=== PATIENT | female | born 1950 | race Caucasian/White ===

== ENCOUNTER → 2016-11-16 | Outpatient (CLI) | payer BC ==
[~2016-11-16] MED LIST: AGM875; CHOL100010 PO; CLR10; DIAZ2TAB PO; FAMO20TA11; GLUC10007 PO; LEVO50TA6 PO; LVNIS120 SQ; MULT-190 PO; WARF4TAB43 PO; WARF5TAB7 PO; WARF7.5T4 PO
--- NOTE | 2016-11-16 17:00 | MAMMOGRAPHY REPORT ---
BILATERAL DIGITAL SCREENING MAMMOGRAM WITH CAD: 11/16/2016 TECHNIQUE: Current study was also evaluated with a Computer Aided Detection (CAD) system. Bilatera l CC and MLO views were obtained. COMPARISON: Comparison is made to exams dated: 07/07/2015 mammogram, 08/14/2012 mammogram, 10/19/2010 mammogram, 10/13/2009 mammogram - [facility] [address], and 10/09/2008. BREAST COMPOSITION: There are scattered areas of fibroglandular density in both breasts. FINDINGS: There is a small cluster of calcifications in the right upper outer quadrant, for which s pot magnification views are recommended for further evaluation. The remainder of both breasts are stable compared to prior exams, without suspicious masses, calcifi cations, or areas of architectural distortion noted. Other scattered bilateral benign-appearing roseline cifications are stable. Round mass in the left upper outer quadrant is stable dating back to at [address] the 2007 exam. IMPRESSION: ACR BI-RADS CATEGORY 0: INCOMPLETE EVALUATION: NEED ADDITIONAL IMAGING EVALUATION Right upper outer quadrant calcifications, for which additional imaging evaluation is recommended. The patient will be called to schedule an appointment. Approximately 10% of breast cancers are not detected with mammography. A negative mammographic repor t should not delay biopsy if a clinically suggestive mass is present. Haley New M.D. /:11/16/2016 16:12:22 Implementation Lead: Margie GARCIA)(Jonathan), [facility] [address] letter sent: Addl Imaging 0 BI-RADS Code: ACR BI-RADS Category 0: Incomplete Evaluation: Need Additional Imaging Evaluation
== END | disposition home or self-care (01) ==
LOC: C.MAMM 11:22
PROVIDERS: ATTEND Family Medicine
DX: Z12.31 Encounter for screening mammogram for malignant neoplasm of breast (principal); R92.1 Mammographic calcification found on diagnostic imaging of breast

== ENCOUNTER → 2016-11-29 | Outpatient (CLI) | payer BC ==
--- NOTE | 2016-11-29 13:25 | MAMMOGRAPHY REPORT ---
UNILATERAL RIGHT DIGITAL DIAGNOSTIC MAMMOGRAM: 11/29/2016 CLINICAL HISTORY: 66-year-old woman called back from screening mammography for clustered microcalcif ications in the right upper outer quadrant. TECHNIQUE: Spot magnification right CC and ML views were obtained. COMPARISON: Comparison is made to exams dated: 11/16/2016 mammogram, 07/07/2015 mammogram, and 08/14/20 12 mammogram - [facility]. BREAST COMPOSITION: There are scattered areas of fibroglandular density in the right breast. FINDINGS: The spot magnification views of the right upper outer quadrant demonstrate a 6 mm cluster of very faint amorphous microcalcifications in the middle one third of the upper outer quadrant. Wh en comparing to prior available mammograms, a few may have been present dating back to 2011, but the cluster remains indeterminate and definitive characterization with tissue sampling is recommended. No obvious associated mass or architectural distortion. A few other loosely grouped punctate micro calcifications are seen more medially within the visualized right breast. IMPRESSION: ACR BI-RADS CATEGORY 4B: INTERMEDIATE SUSPICION FOR MALIGNANCY Right breast stereotactic guided biopsy is recommended for a 6 mm cluster of faint amorphous microca lcifications in the right upper outer quadrant. These results and recommendations were discussed with the patient at the time of the exam. She tent atively scheduled the biopsy prior to leaving our department. Approximately 10% of breast cancers are not detected with mammography. A negative mammographic repor t should not delay biopsy if a clinically suggestive mass is present. Flora Ontiveros M.D. ay/:11/29/2016 12:22:10 Airframe Design Engineer: Sonia MCCARTY(Daly)(M), [facility] letter sent: Abnormal 4/5 BI-RADS Code: ACR BI-RADS Category 4B: Intermediate Suspicion For Malignancy
== END | disposition home or self-care (01) ==
LOC: C.MAMM 10:32
PROVIDERS: ATTEND Family Medicine
DX: R92.0 Mammographic microcalcification found on diagnostic imaging of breast (principal)

== ENCOUNTER → 2016-12-07 | Outpatient (CLI) | payer BC ==
--- NOTE | 2016-12-07 14:51 | Discharge Instructions ---
Discharge Instructions Procedure Procedure Date: Dec 07, 2016. Reason for visit: Right Calcs. Discharge Discharge Date: Dec 07, 2016. Discharge Diagnosis: status post breast biopsy Instructions Activity Recommendations: Additional Limitations (see below) Return to School/Work: no limitations Recommended Home Diet: No Limitations Provider Instructions: ACTIVITY RECOMMENDATIONS: * No lifting, pushing, pulling or exercising the affected side for three days. RETURN TO SCHOOL/WORK: * You may return to work/school after the procedure, but do not perform any strenuous activities for 24 to 48 hours. MEDICATIONS: * Tylenol (two 325 mg) every four to six hours if needed for mild pain (if not allergic to Tylenol). DIET: * Resume previous diet. SPECIAL CARE INSTRUCTIONS: * Keep biopsy site dry for 24 hours. May shower after 24 hours, but do not soak (bathe) incision. * May remove Tegaderm (plastic patch) tomorrow AFTER showering. * Leave the steri-strips on for one week. Allow the steri-strips to fall off by themselves. If not off after one week, you may remove them. You may place a Bandaid crosswise over the strips, if desired. * Apply ice 10 minutes on and 10 minutes off as needed. * Wear a bra at bedtime to sleep more comfortably for 2-3 days. * Your referring physician should have the results after approximately 5 to 7 business days. * Call for unusual bleeding, fever, drainage, etc or if you have any questions call during normal business hours or after hours call Dr New, . FOLLOW UP VISIT: Follow-up with Referring Physician as scheduled. Allergies Coded Allergies: No Known Allergies (Unverified Allergy, Mild, 05/01/06) Tayler Saba Recommendations: Call your doctor if: * Temperature above 101 degrees * Pain not relieved by pain medicine ordered * There is increased drainage or redness from any incision * You have any unanswered questions or concerns. Your Doctors Instructions noted above were prepared by provider Haley New. Patient Signature Section: Patient Instructions Signature Page Teresa Martinezra Patient (or Guardian) Signature/Date: I have read and understand the instructions given to me by my caregivers. Caregiver/RN/Doctor Signature/Date: The above-named patient and/or guardian has received patient instructions on this date. + Original Patient Signature Page (only) stays with chart. Please make copy for patient.
--- NOTE | 2016-12-07 16:13 | MAMMOGRAPHY REPORT ---
STEREOTACTIC GUIDED BIOPSY RIGHT BREAST: 12/07/2016 CLINICAL HISTORY: Right upper outer quadrant calcifications. PATIENT CONSENT: The procedure, risks, benefits, and alternatives of stereotactic biopsy with clip p lacement were discussed with the patient, and verbal and written consent was obtained. A timeout wa s performed immediately prior to the procedure. PROCEDURE DESCRIPTION: With stereotactic guidance, aseptic technique, and lidocaine as a local anest hetic (1% lidocaine to anesthetize the skin and 1% lidocaine with epinephrine to anesthetize the naz per tissues), the area of concern was sampled multiple times with a 9-gauge vacuum-assisted biopsy n eedle (TipTap Eviva). The path of approach was craniocaudal. The specimen radiograph demonstrates c alcifications to be present in the samples. A metallic marker clip was placed at the biopsy site. This was confirmed on postprocedure mammograms. Direct pressure was applied at the biopsy site and hemostasis was readily achieved. The patient tolerated the procedure without complication. She was given wound care instructions. COMPARISON: Comparison is made to exams dated: 11/29/2016 mammogram, 11/16/2016 mammogram, 07/07/2015 m ammogram, 08/14/2012 mammogram, 10/19/2010 mammogram, and 10/13/2009 mammogram - [facility]. IMPRESSION: STEREOTACTIC GUIDED BIOPSY Stereotactic biopsy of indeterminate calcifications in the right upper outer quadrant, with clip adarsh cement. The patient will receive pathology results from her referring physician. Haley New M.D. ah/:12/07/2016 14:52:31 Sewing Supervisor: Lissett MCCARTY(Daly)(Jonathan), [facility]
--- NOTE | 2016-12-07 16:14 | MAMMOGRAPHY REPORT ---
UNILATERAL RIGHT DIGITAL DIAGNOSTIC MAMMOGRAM: 12/07/2016 CLINICAL HISTORY: Status post stereotactic biopsy of right breast calcifications. TECHNIQUE: Postprocedural right CC and MLO views were obtained. COMPARISON: Comparison is made to exams dated: 11/29/2016 mammogram, 11/16/2016 mammogram, 07/07/2015 m ammogram, 08/14/2012 mammogram, 10/19/2010 mammogram, and 10/13/2009 mammogram - [facility]. BREAST COMPOSITION: There are scattered areas of fibroglandular density in the right breast. FINDINGS: A new marker clip is seen at the site of the biopsied calcifications in the right upper outer quadra nt. No significant postbiopsy hematoma is seen. IMPRESSION: POST PROCEDURE IMAGING FOR MARKER PLACEMENT New biopsy marker clip status post stereotactic biopsy of right upper-outer quadrant calcifications. Pathology results are pending. Approximately 10% of breast cancers are not detected with mammography. A negative mammographic repor t should not delay biopsy if a clinically suggestive mass is present. Haley New M.D. ah/:12/07/2016 15:02:02 Crown Ironer Operator: Lissett GARCIA)(Jonathan), [facility] BI-RADS Code: Post Procedure Imaging For Marker Placement
== END | disposition home or self-care (01) ==
LOC: C.MAMM 13:29
PROVIDERS: ATTEND Family Medicine
DX: R92.1 Mammographic calcification found on diagnostic imaging of breast (principal); N60.11 Diffuse cystic mastopathy of right breast; N60.81 Other benign mammary dysplasias of right breast

== ENCOUNTER → 2016-12-19 | Outpatient (CLI) | payer BC ==
--- NOTE | 2016-12-19 11:57 | DIAGNOSTIC IMAGING REPORT ---
CHEST 2 VIEWS ROUTINE CLINICAL HISTORY: Shortness of breath. Cough. COMPARISON STUDY: Chest radiograph August 27, 2007. FINDINGS: There is no pneumothorax or pleural effusion. Lung volumes are normal. Linear left basilar opacity suggests atelectasis. There is no consolidation. Opacity at the right cardiophrenic angle is unchanged and may reflect epicardial fat pad. Cardiomediastinal silhouette is stable. There is no evidence of pulmonary edema. The appearance of the chest has not significantly changed. IMPRESSION: No acute cardiopulmonary findings. No significant change in appearance of the chest. Electronically signed by: Dale Ocampo M.D. 12/19/2016 11:56 AM Dictated Date/Time: 12/19/2016 11:54 AM
== END | disposition home or self-care (01) ==
LOC: C.RAD 10:45
PROVIDERS: ATTEND Family Medicine
DX: R06.02 Shortness of breath (principal); F41.9 Anxiety disorder, unspecified; N60.19 Diffuse cystic mastopathy of unspecified breast

== ENCOUNTER 2017-02-20 13:56 | Inpatient (IN) | payer BC, OTHER ==
[~2017-02-20] VITALS: Ht 162.6 cm; Wt 116.1 kg
[~2017-02-20 13:56] MED LIST changes: -CHOL100010 PO; -DIAZ2TAB PO; -GLUC10007 PO; -LEVO50TA6 PO; -LVNIS120 SQ; -MULT-190 PO; -WARF4TAB43 PO; -WARF5TAB7 PO; -WARF7.5T4 PO
[2017-02-20] MEDS ORDERED: LEVALBUTEROL 1.25MG/0.5ML NEB INH STA (14:08)
[2017-02-20] MEDS ORDERED: METHYLPREDNISOLONE 125 MG VIAL IV STA (14:08)
[2017-02-20] MEDS ORDERED: IPRATROPIUM BROMIDE NEB SOLN 0.02% 2.5 ML VIAL INH STA (14:08)
[2017-02-20] MEDS ORDERED: SODIUM CHLORIDE 0.9% 1000ML 1,000 ML IV STA (14:08)
--- NOTE | 2017-02-20 14:25 | EMERGENCY ROOM VISIT NOTE ---
History Report prepared by Ab: Jaswinder Mooney Under the Supervision of: Dr. Oneal Resendez M.D. First contact with patient: 14:04 Chief Complaint: RESPIRATORY PROBLEMS Stated Complaint: CANNOT BREATH W/O O2.. DR REFERRED History of Present Illness The patient is a 66 year old female who presents to the Emergency Room with complaints of persistent shortness of breath for the past four days. The shortness of breath is exacerbated with exertion. She has felt hot but did not measure her temperature. She was wearing oxygen upon arrival, which has made it much easier to breathe. She also tried using her daughter's nebulizer, which did also help. The patient was referred to the ED today by Dr. Giron's office ( [facility]), where she was noted to have a low oxygen saturation (mid 80 's). The patient denies any history of lung disease, including COPD or asthma. She also denies history of diabetes, cardiac disease, or blood clots. She has not been on any long trips recently. She had the flu shot this year. The patient does not have any sick contacts. Source of History: patient Onset: four days ago Position: other (respiratory) Quality: other (short of breath) Timing: other (persistent) Modifying Factors (Worsening): exertion Review of Systems See HPI for pertinent positives & negatives. A total of 10 systems reviewed and were otherwise negative. Past Medical & Surgical Medical Problems: (1) Licona's palsy Family History FH: asthma Social History Smoking Status: Former Smoker Marital Status: Housing Status: lives with family Current/Historical Medications Scheduled Cholecalciferol (Vitamin D), 1,000 PO DAILY Glucosamine Sulfate (Glucosamine), 2,000 MG PO DAILY Levothyroxine Sodium (Levothyroxine Sodium), 1 TAB PO DAILY Ocuvite Preservision (Ocuvite Preservision), 1 TAB PO DAILY Miscellaneous Medications Loratadine (Claritin) Allergies Coded Allergies: Erythromycin (Unverified Adverse Reaction, Intermediate, STOMACH UPSET, ) Physical Exam Vital Signs Date Time Temp Pulse Resp B/P Pulse Ox O2 Delivery O2 Flow Rate FiO2 02/20/17 17:00 100 24 123/84 96 Non-Rebreather 15.0 100 02/20/17 16:46 96 Non-Rebreather 15.0 100 02/20/17 16:45 87 Nasal Cannula 6.0 02/20/17 16:05 88 24 141/75 94 Nasal Cannula 5.0 02/20/17 15:43 101 20 147/105 97 Nasal Cannula 5.0 02/20/17 14:50 101 02/20/17 14:37 Nasal Cannula 4.0 89 02/20/17 14:15 95 Nasal Cannula 5.0 02/20/17 14:15 95 5.0 02/20/17 14:05 Nasal Cannula 4.0 02/20/17 13:57 36.8 112 18 178/104 83 Room Air Physical Exam GENERAL: Patient is in no acute distress. HEENT: No acute trauma, normocephalic atraumatic, mucous membranes moist, no nasal congestion, no scleral icterus. NECK: No stridor, no adenopathy, no meningismus, trachea is midline. LUNGS: Clear to auscultation bilaterally, no wheeze, no rhonchi, breath sounds equal. HEART: Tachycardic with a regular rhythm and no murmurs. ABDOMEN: Soft, nontender, bowel sounds positive, no hernias, no peritonitis. EXTREMITIES: No cyanosis or edema, full range of motion of all the joints without pain or difficulty, no signs for acute trauma. NEUROLOGIC: Oriented x 3, no acute motor or sensory deficits, no focal weakness. SKIN: No rash, no jaundice, no diaphoresis. Medical Decision & Procedures ER Provider Diagnostic Interpretation: X ray results and stated below per my interpretation and radiologist interpretation. Other radiology results and stated below per my review and radiologist interpretation: CHEST ONE VIEW PORTABLE CLINICAL HISTORY: EVALUATE RESPIRATORY DISTRESS. DYSPNEA dyspnea COMPARISON STUDY: 12/19/2016 FINDINGS: Mild stable cardia megaly. Pulmonary vasculature is unremarkable. Diaphragms smooth. IMPRESSION: No acute process. Electronically signed by: Nico Julien M.D. 02/20/2017 2:40 PM Dictated Date/Time: 02/20/2017 2:[address] ANGIOGRAM OF THE CHEST CLINICAL HISTORY: Shortness of breath COMPARISON STUDY: Chest x-ray dated 02/20/2017 TECHNIQUE: Following the IV administration of 90 mL of Optiray-320, CT angiogram of the thorax was performed from the thoracic inlet to the lung bases utilizing the pulmonary embolus protocol. Images are reviewed in the axial, sagittal, and coronal planes. IV contrast was administered without complication. MIP imaging was performed. CT DOSE: 656.03 mGy.cm FINDINGS: There is a small hiatal hernia. No pathologically enlarged axillary mediastinal or hilar lymph nodes were visualized. There was no evidence of thoracic aortic dilatation. There are pulmonary artery filling defects involving bilateral lower lobe pulmonary artery branches, bilateral upper lobe branches, as well as right middle lobe branches. The findings are indicative of acute bilateral pulmonary embolism. There are no secondary findings to indicate right ventricular strain. No pleural effusions are visualized. There are nodular airspace opacities within the left upper lobe and right lower lobe. In addition there are scattered groundglass opacities. These are likely inflammatory or secondary to pulmonary infarcts. IMPRESSION: 1. Acute bilateral pulmonary embolism 2. Scattered bilateral airspace opacities, likely inflammatory or secondary to pulmonary infarction. Electronically signed by: Shaun Monroe M.D. 02/20/2017 4:33 PM Dictated Date/Time: 02/20/2017 4:29 PM Laboratory Results 02/20/17 14:25 Red Blood Count 5.41, Mean Corpuscular Volume 87.2, Mean Corpuscular Hemoglobin 30.7, Mean Corpuscular Hemoglobin Concent 35.2, Mean Platelet Volume 11.0, Neutrophils (%) (Auto) 78.9, Lymphocytes (%) (Auto) 12.0, Monocytes (%) (Auto) 6.9, Eosinophils (%) (Auto) 1.7, Basophils (%) (Auto) 0.2, Neutrophils # (Auto) 9.02, Lymphocytes # (Auto) 1.37, Monocytes # (Auto) 0.79, Eosinophils # (Auto) 0.19, Basophils # (Auto) 0.02 02/20/17 14:25 Test 02/20/17 14:25 02/20/17 14:30 White Blood Count 11.43 K/uL (4.8-10.8) Red Blood Count 5.41 M/uL (4.2-5.4) Hemoglobin 16.6 g/dL (12.0-16.0) Hematocrit 47.2 % (37-47) Mean Corpuscular Volume 87.2 fL (80-100) Mean Corpuscular Hemoglobin 30.7 pg (25-34) Mean Corpuscular Hemoglobin Concent 35.2 g/dl (32-36) Platelet Count 208 K/uL (130-400) Mean Platelet Volume 11.0 fL (7.4-10.4) Neutrophils (%) (Auto) 78.9 % Lymphocytes (%) (Auto) 12.0 % Monocytes (%) (Auto) 6.9 % Eosinophils (%) (Auto) 1.7 % Basophils (%) (Auto) 0.2 % Neutrophils # (Auto) 9.02 K/uL (1.4-6.5) Lymphocytes # (Auto) 1.37 K/uL (1.2-3.4) Monocytes # (Auto) 0.79 K/uL (0.11-0.59) Eosinophils # (Auto) 0.19 K/uL (0-0.5) Basophils # (Auto) 0.02 K/uL (0-0.2) RDW Standard Deviation 40.9 fL (36.4-46.3) RDW Coefficient of Variation 12.9 % (11.5-14.5) Immature Granulocyte % (Auto) 0.3 % Immature Granulocyte # (Auto) 0.04 K/uL (0.00-0.02) Prothrombin Time 10.6 SECONDS (9.0-12.0) Prothromb Time International Ratio 1.0 (0.9-1.1) Activated Partial Thromboplast Time 26.7 SECONDS (21.0-31.0) Partial Thromboplastin Ratio 1.0 Anion Gap 7.0 mmol/L (3-11) Est Creatinine Clear Calc Drug Dose 74.7 ml/min Estimated GFR () 75.1 Estimated GFR (Non- 64.8 BUN/Creatinine Ratio 12.2 (10-20) Calcium Level 8.8 mg/dl (8.5-10.1) Total Bilirubin 0.6 mg/dl (0.2-1) Aspartate Amino Transf (AST/SGOT) 16 U/L (15-37) Alanine Aminotransferase (ALT/SGPT) 24 U/L (12-78) Alkaline Phosphatase 86 U/L (45-117) Troponin I 0.100 ng/ml (0-0.045) Total Protein 8.1 gm/dl (6.4-8.2) Albumin 3.7 gm/dl (3.4-5.0) Globulin 4.4 gm/dl (2.5-4.0) Albumin/Globulin Ratio 0.8 (0.9-2) Influenza Type A (RT-PCR) Neg for Influ A (NEG) Influenza Type B (RT-PCR) Neg for Influ B (NEG) Laboratory results reviewed by me. Medications Administered Medications (Trade) Dose Ordered Sig/Nilda Route Start Time Stop Time Status Last Admin Dose Admin Sodium Chloride (Nss 1000ml) 1,000 ml @ 200 mls/hr Q5H STAT IV 02/20/17 14:08 02/20/17 19:07 02/20/17 14:33 200 MLS/HR Methylprednisolone Sodium Succinate (Solu-Medrol IV) 80 mg NOW STAT IV 02/20/17 14:08 02/20/17 14:12 DC 02/20/17 14:33 80 MG Levalbuterol (Xopenex 1.25MG/ 0.5ML Neb) 1.25 mg NOW STAT INH 02/20/17 14:08 02/20/17 14:12 DC 02/20/17 14:27 1.25 MG Ipratropium Jupiter (Atrovent 0.02% 0.5MG/2.5ML Neb) 0.5 mg NOW STAT INH 02/20/17 14:08 02/20/17 14:12 DC 02/20/17 14:27 0.5 MG Enoxaparin Sodium (Lovenox Inj) 120 mg ONE ONCE SQ 02/20/17 17:00 02/20/17 17:01 DC 02/20/17 17:06 120 MG ECG Indication: SOB/dyspnea Rate (beats per minute): 102 Rhythm: sinus tachycardia Findings: no acute ischemic change, no ectopy ED Course 1404: The patient was evaluated in room C6. A complete history and physical exam was performed. 1408: Ipratropium Jupiter 0.5 mg INH, Levalbuterol 1.25 mg INH, Solu-Medrol 80 mg IV, NSS 1000 ml @ 200 mls/hr. 1640: Discussed the case with Dr. Arita, [facility] Hospitalist. The patient will be evaluated. 1642: Lovenox 1 ea SQ. 1643: Updated the patient. 1700: Lovenox 120 mg SQ. Medical Decision Differential diagnosis includes pneumonia or bronchitis, CHF, COPD or asthma, electrolyte imbalance, anemia, GA, PE. There is a mild leukocytosis, this could be consistent with infection or the stress of her situation. No worrisome anemia. No significant electrolyte abnormality, kidney failure or hepatitis. There was no coagulopathy. EKG showed a sinus tachycardia, no acute ischemic change. Cardiac enzyme testing 1 was elevated consistent with possible cardiac injury/strain. Chest x-ray did not show pneumonia or pneumothorax. Chest CT showed bilateral pulmonary emboli , no pneumonia. No right heart strain by CT. Influenza testing was negative. The patient did require O2 supplementation to keep her oxygen level adequate. She was hypoxic on just room air. She received IV saline, IV Solu-Medrol and a Xopenex Atrovent neb. She was given subcutaneous Lovenox as anticoagulation. The patient requires admission/observation based on her findings. I talked with her. I spoke with the supervisor case loading. The on-call hospitalist was consulted. The decision to give Lovenox versus IV heparin was based on the preference of the hospitalist. Consults Time Called: 1630 Consulting Physician: Dr. Arita [facility] Hospitalist. Returned Call: [phone]: Discussed the case with Dr. Arita, [facility]ist. The patient will be evaluated. Impression Primary Impression: Bilateral pulmonary embolism Additional Impressions: Hypoxia Elevated troponin Scribe Attestation The scribe's documentation has been prepared under my direction and personally reviewed by me in its entirety. I confirm that the note above accurately reflects all work, treatment, procedures, and medical decision making performed by me. Departure Information Dispostion Being Evaluated By Hospitalist Referrals Verito Salazar D.OChristin (PCP) Patient Instructions My [facility] Health Problem Qualifiers
[2017-02-20] MEDS ORDERED: OPTIRAY 320 IV PRN (14:30)
--- NOTE | 2017-02-20 14:42 | DIAGNOSTIC IMAGING REPORT ---
CHEST ONE VIEW PORTABLE CLINICAL HISTORY: EVALUATE RESPIRATORY DISTRESS. DYSPNEA dyspnea COMPARISON STUDY: 12/19/2016 FINDINGS: Mild stable cardia megaly. Pulmonary vasculature is unremarkable. Diaphragms smooth. IMPRESSION: No acute process. Electronically signed by: Nico Julien M.D. 02/20/2017 2:40 PM Dictated Date/Time: 02/20/2017 2:39 PM
[2017-02-20 14:54] LABS: BASO % 0.2 %; BASO ABS # 0.02 K/uL (0-0.2); COMPLETE YES; EOS % 1.7 %; HEMATOCRIT 47.2 % (37-47); IG% 0.3 %; LYMPH ABS # 1.37 K/uL (1.2-3.4); MEAN CELL VOLUME 87.2 fL (80-100); MEAN CORPUSCULAR HEMOGLOBIN 30.7 pg (25-34); MEAN CORPUSCULAR HGB CONC 35.2 g/dl (32-36); MONO % 6.9 %; NEUT % 78.9 %; PLATELET COUNT 208 K/uL (130-400); RED BLOOD COUNT 5.41 M/uL (4.2-5.4); WHITE BLOOD COUNT 11.43 K/uL (4.8-10.8)
[2017-02-20 15:01] LABS: PROTHROMBIN TIME (PATIENT) 10.6 SECONDS (9.0-12.0)
[2017-02-20] MEDS ORDERED: LEVO50TA6 PO (15:01)
[2017-02-20] MEDS ORDERED: MULT-190 PO (15:04)
[2017-02-20] MEDS ORDERED: GLUC10007 PO (15:04)
[2017-02-20] MEDS ORDERED: CHOL100010 PO (15:05)
[2017-02-20 15:57] LABS: ALB/GLOB RATIO 0.8 (0.9-2); BUN/CREATININE RATIO 12.2 (10-20); CALCIUM 8.8 mg/dl (8.5-10.1); CREATININE 0.91 mg/dl (0.60-1.20)
--- NOTE | 2017-02-20 16:35 | DIAGNOSTIC IMAGING REPORT ---
CT ANGIOGRAM OF THE CHEST CLINICAL HISTORY: Shortness of breath COMPARISON STUDY: Chest x-ray dated 02/20/2017 TECHNIQUE: Following the IV administration of 90 mL of Optiray-320, CT angiogram of the thorax was performed from the thoracic inlet to the lung bases utilizing the pulmonary embolus protocol. Images are reviewed in the axial, sagittal, and coronal planes. IV contrast was administered without complication. MIP imaging was performed. CT DOSE: 656.03 mGy.cm FINDINGS: There is a small hiatal hernia. No pathologically enlarged axillary mediastinal or hilar lymph nodes were visualized. There was no evidence of thoracic aortic dilatation. There are pulmonary artery filling defects involving bilateral lower lobe pulmonary artery branches, bilateral upper lobe branches, as well as right middle lobe branches. The findings are indicative of acute bilateral pulmonary embolism. There are no secondary findings to indicate right ventricular strain. No pleural effusions are visualized. There are nodular airspace opacities within the left upper lobe and right lower lobe. In addition there are scattered groundglass opacities. These are likely inflammatory or secondary to pulmonary infarcts. IMPRESSION: 1. Acute bilateral pulmonary embolism 2. Scattered bilateral airspace opacities, likely inflammatory or secondary to pulmonary infarction. Electronically signed by: Shaun Monroe M.D. 02/20/2017 4:33 PM Dictated Date/Time: 02/20/2017 4:29 PM
[2017-02-20 16:36] LABS: INFLUENZA A PCR Neg for Influ A (NEG); INFLUENZA B PCR Neg for Influ B (NEG)
[2017-02-20] MEDS ORDERED: ENOXAPARIN 1 MG/KG SQ STA (16:42)
[2017-02-20] MEDS ORDERED: ACETAMINOPHEN 325 MG TAB PO PRN (17:00)
[2017-02-20] MEDS ORDERED: ONDANSETRON INJ 2 MG/ML 2 ML VIAL IV PRN (17:00)
[2017-02-20] MEDS ORDERED: ENOXAPARIN 120 MG/0.8 ML SYR SQ ONE (17:00)
--- NOTE | 2017-02-20 18:13 | DIAGNOSTIC IMAGING REPORT ---
ULTRASOUND VENOUS DOPPLER LWR EXT BILA CLINICAL HISTORY: Leg swelling. Bilateral pulmonary embolism. Shortness of breath. COMPARISON STUDY: No previous studies for comparison. FINDINGS: Real-time and color flow Doppler imaging were performed. Flow was seen within the femoral, popliteal and calf veins with no intraluminal thrombus demonstrated. The saphenous vein is patent. IMPRESSION: No evidence of lower extremity DVT Electronically signed by: Shaun Monroe M.D. 02/20/2017 6:11 PM Dictated Date/Time: 02/20/2017 6:11 PM
--- NOTE | 2017-02-20 18:18 | History and Physical ---
History & Physical Date & Time of Service: Feb 20, 2017 at 17:33 Chief Complaint: Cannot Breath W/O O2.. Dr Referred Primary Care Physician: Verito Salazar D.O. History of Present Illness Source: patient, family, hospital records 66 yo female with recent history of 4 days of shortness of breath that is completely new for her. She said she felt fine up until last when she developed shortness of breath even with minimal activity around the house. Progressed over the past several days to the point that she is short of breath at rest. Was sent to the ED by her PCP due to these symptoms. She has noticed some wheezing but no cough. She denies ever having chest pain. No fever or chills. Initially her breathing got better with rest but now rest not helping. In the ED her CXR was normal and lungs were clear. She was initially 83% on room air and improved with nasal canula. CTA chest showed bilateral PE, no saddle or main pulmonary branches involved. Given Lovenox. Upon further review, she does admit to some increased right leg swelling over past few weeks but no pain in calves or behind the knee. No personal history of VTE. Patient does not know her family history, adopted. She is up to date with cancer screenings with mammograms and guaiac stools testing. No recent hospitalizations or long car/plane rides. 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 However, she would exercise in the morning prior to work and would get up frequently during the day. Past Medical/Surgical History Hypothyroidism Seasonal allergies Medical Problems: (1) Licona's palsy Status: Resolved Family History patient does not know her family history, adopted Social History Smoking Status: Former Smoker (quit 20+ years ago) Alcohol Use: none Marital Status: Housing status: lives with family Occupational Status: employed Multi-Drug Resistant Organisms History of MDRO: No Allergies Coded Allergies: Erythromycin (Unverified Adverse Reaction, Intermediate, STOMACH UPSET, ) Home Medications Scheduled Cholecalciferol (Vitamin D), 1,000 PO DAILY Glucosamine Sulfate (Glucosamine), 2,000 MG PO DAILY Levothyroxine Sodium (Levothyroxine Sodium), 1 TAB PO DAILY Ocuvite Preservision (Ocuvite Preservision), 1 TAB PO DAILY Miscellaneous Medications Loratadine (Claritin) Review of Systems Constitutional: + fatigue, + weakness, No chills, No fever, No problem reported , No sweats, No weight loss Eyes: No diplopia, No discharge, No eye pain, No problem reported, No redness, No worsening of vision ENT: No dental problems, No hearing loss, No nasal symptoms, No problem reported, No sore throat, No tinnitus, No trouble swallowing, No unusual epistaxis Respiratory: + dyspnea at rest, + dyspnea on exertion, + shortness of breath, + wheezing, No cough, No hemoptysis, No sputum Cardiovascular: + edema (right leg), No PND, No chest pain, No claudication, No orthopnea, No palpitations, No problem reported Abdomen: + problem reported (poor appetite with shortness of breath), No GI bleeding, No constipation, No diarrhea, No nausea, No pain, No vomiting Musculoskeletal: No calf pain, No joint pain, No muscle pain, No problem reported, No swelling Genitourinary - Female: No dysuria, No hematuria, No urinary frequency, No urinary incontinence, No urinary retention, No urinary urgency Psychiatric: No anhedonism, No anxiety, No depression symptoms, No insomnia, No problem reported, No substance abuse Endocrine: No excessive thirst, No excessive urination, No fatigue, No problem reported Hematologic / Lymphatic: No abnormal bleeding/bruising, No clotting problems, No night sweats, No problem reported, No swollen lymph nodes Integumentary: No bleeding, No color change, No itch, No new/changing skin lesions, No problem reported, No rash Allergic / Immunologic: No environmental allergies, No food allergies, No frequent infections, No hives, No pet sensitivities, No poor healing, No problem reported, No prolonged convalescence, No seasonal allergies Physical Exam Vital Signs Date Time Temp Pulse Resp B/P Pulse Ox O2 Delivery O2 Flow Rate FiO2 02/20/17 17:00 100 24 123/84 96 Non-Rebreather 15.0 100 02/20/17 16:46 96 Non-Rebreather 15.0 100 02/20/17 16:45 87 Nasal Cannula 6.0 02/20/17 16:05 88 24 141/75 94 Nasal Cannula 5.0 02/20/17 15:43 101 20 147/105 97 Nasal Cannula 5.0 02/20/17 14:50 101 02/20/17 14:37 Nasal Cannula 4.0 89 02/20/17 14:15 95 Nasal Cannula 5.0 02/20/17 14:15 95 5.0 02/20/17 14:05 Nasal Cannula 4.0 02/20/17 13:57 36.8 112 18 178/104 83 Room Air General Appearance: no apparent distress, + obese Head: normocephalic, atraumatic Eyes: normal inspection, EOMI ENT: normal ENT inspection, hearing grossly normal, pharynx normal Neck: supple, no adenopathy, no JVD, trachea midline Respiratory/Chest: chest non-tender, lungs clear, normal breath sounds, no respiratory distress, + accessory muscle use Cardiovascular: regular rate, rhythm, no edema, no gallop, no JVD, no murmur, normal peripheral pulses Abdomen/GI: normal bowel sounds, non tender, soft, no organomegaly Back: normal inspection, no CVA tenderness, no muscle spasm, normal range of motion Extremities/Musculoskelatal: normal inspection, no calf tenderness, normal capillary refill, no pedal edema, normal range of motion 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, no motor/sensory deficits, alert, normal mood/affect, normal reflexes, oriented x 3 Skin: normal color, warm/dry, no rash Lymphatic: no adenopathy Diagnostics Laboratory Results Results Past 24 Hours Test 02/20/17 14:25 02/20/17 14:30 Range/Units White Blood Count 11.43 4.8-10.8 K/uL Red Blood Count 5.41 4.2-5.4 M/uL Hemoglobin 16.6 12.0-16.0 g/dL Hematocrit 47.2 37-47 % Mean Corpuscular Volume 87.2 80-100 fL Mean Corpuscular Hemoglobin 30.7 25-34 pg Mean Corpuscular Hemoglobin Concent 35.2 32-36 g/dl Platelet Count 208 130-400 K/uL Mean Platelet Volume 11.0 7.4-10.4 fL Neutrophils (%) (Auto) 78.9 % Lymphocytes (%) (Auto) 12.0 % Monocytes (%) (Auto) 6.9 % Eosinophils (%) (Auto) 1.7 % Basophils (%) (Auto) 0.2 % Neutrophils # (Auto) 9.02 1.4-6.5 K/uL Lymphocytes # (Auto) 1.37 1.2-3.4 K/uL Monocytes # (Auto) 0.79 0.11-0.59 K/uL Eosinophils # (Auto) 0.19 0-0.5 K/uL Basophils # (Auto) 0.02 0-0.2 K/uL RDW Standard Deviation 40.9 36.4-46.3 fL RDW Coefficient of Variation 12.9 11.5-14.5 % Immature Granulocyte % (Auto) 0.3 % Immature Granulocyte # (Auto) 0.04 0.00-0.02 K/uL Prothrombin Time 10.6 9.0-12.0 SECONDS Prothromb Time International Ratio 1.0 0.9-1.1 Activated Partial Thromboplast Time 26.7 21.0-31.0 SECONDS Partial Thromboplastin Ratio 1.0 Sodium Level 140 136-145 mmol/L Potassium Level 4.0 3.5-5.1 mmol/L Chloride Level 105 98-107 mmol/L Carbon Dioxide Level 28 21-32 mmol/L Anion Gap 7.0 3-11 mmol/L Blood Urea Nitrogen 11 7-18 mg/dl Creatinine 0.91 0.60-1.20 mg/dl Est Creatinine Clear Calc Drug Dose 74.7 ml/min Estimated GFR () 75.1 Estimated GFR (Non- 64.8 BUN/Creatinine Ratio 12.2 10-20 Random Glucose 102 70-99 mg/dl Calcium Level 8.8 8.5-10.1 mg/dl Total Bilirubin 0.6 0.2-1 mg/dl Aspartate Amino Transf (AST/SGOT) 16 15-37 U/L Alanine Aminotransferase (ALT/SGPT) 24 12-78 U/L Alkaline Phosphatase 86 45-117 U/L Troponin I 0.100 0-0.045 ng/ml Total Protein 8.1 6.4-8.2 gm/dl Albumin 3.7 3.4-5.0 gm/dl Globulin 4.4 2.5-4.0 gm/dl Albumin/Globulin Ratio 0.8 0.9-2 Influenza Type A (RT-PCR) Neg for Influ A NEG Influenza Type B (RT-PCR) Neg for Influ B NEG Microbiology Results 02/20/17 Blood Culture, Received Pending 02/20/17 Blood Culture, Received Pending Diagnostic Radiology CTA chest - bilateral PE in both upper and lower lobes as well as right middle lobe, no involvement of right or left main pulmonary arteries or saddle embolus CXR normal EKG sinus tachycardia, LAFB Impression Assessment and Plan 66 yo female with acute bilateral PE as well as acute hypoxic respiratory failure - Acute hypoxic respiratory failure: requiring high flow NC and some accessory muscle use on exam due to PE, again, no signs of central PE or right heart strain check an echo with bubble study tomorrow wean oxygen as tolerated - Bilateral PE, unprovoked, submassive: Lovenox 1mg/kg q12 check bilateral venous dopplers lower extremities up to date on cancer screenings could consider outpatient hypercoagulable work up but this is her first VTE event, age 66 - Hypothyroidism: continue Synthroid Level of Care Telemetry Resuscitation Status FULL RESUSCITATION VTE Prophylaxis VTE Risk Assessment Done? Y/N: Yes Risk Level: Moderate Given or contraindicated: Enoxaparin (Lovenox)SQ Additional Copies To Verito Salazar D.O.
[2017-02-20 18:47] VITALS: BP 144/84; PULSE 92; TEMP 36.7; O2SAT 91
[2017-02-20 18:50] VITALS: BP 144/84; PULSE 92; TEMP 36.7; Ht 162.6 cm; Wt 116.1 kg
[2017-02-20 20:20] VITALS: O2SAT 92
[2017-02-21] VITALS (9 sets, daily range): BP systolic 97–143; BP diastolic 61–82; PULSE 76–89; TEMP 36.4–36.8; O2SAT 92–97
[2017-02-21] MEDS: LEVOTHYROXINE 50 MCG TAB PO SCH ×2 (05:56→09:18)
[2017-02-21 06:16] LABS: BASO % 0.1 %; BASO ABS # 0.01 K/uL (0-0.2); COMPLETE YES; HEMATOCRIT 43.3 % (37-47); IG% 0.3 %; LYMPH % 9.7 %; LYMPH ABS # 1.12 K/uL (1.2-3.4); MEAN CORPUSCULAR HEMOGLOBIN 30.3 pg (25-34); MEAN CORPUSCULAR HGB CONC 34.4 g/dl (32-36); MONO % 7.1 %; NEUT % 82.8 %; PLATELET COUNT 195 K/uL (130-400); RED BLOOD COUNT 4.92 M/uL (4.2-5.4); WHITE BLOOD COUNT 11.51 K/uL (4.8-10.8)
[2017-02-21 06:53] LABS: BUN/CREATININE RATIO 17.1 (10-20); CALCIUM 8.5 mg/dl (8.5-10.1); CREATININE 0.84 mg/dl (0.60-1.20); MAGNESIUM 2.4 mg/dl (1.8-2.4); POTASSIUM 4.2 mmol/L (3.5-5.1)
--- NOTE | 2017-02-21 09:08 | Family Medicine Progress Note ---
Progress Note Date of Service Feb 21, 2017. Subjective Pt evaluation today including: conversation w/ patient, physical exam, chart review, lab review, review of studies, review of inpatient medication list Pain: 0 PO Intake: good Voiding: no voiding problems, no incontinence Feeling much less short of breath today and keen to go home. Discussed warfarin vs. NOAG and she used to work in the pharmaceutical industry and so knows a lot about each already and wishes to go on warfarin. Also notes increased shortness of breath on exertion and subsequent changes her activities to avoid difficulty in breathing over 3-4 months. Cancer screening is up to date - fecal occult blood yearly has been negative, elects not to have colonoscopy. No longer having pap smears as aged 66 yo (no previous biopsies or LEEP), Mammograms up to date ?some density on last mammogram and sent to specialist in [place] with biopsy/FNA showing benign ductal dysplasia. Weight loss intentional from portion control in the last 2 months (10 lb), otherwise has more of a problem gaining weight. All Other Systems: Reviewed and Negative Medications Current Inpatient Medications Medications (Trade) Dose Ordered Sig/Nilda Route Start Time Stop Time Status Last Admin Dose Admin Ioversol (Optiray 320) 100 ml UD PRN IV 02/20/17 14:30 02/24/17 14:29 Acetaminophen (Tylenol Tab) 650 mg Q4H PRN PO 02/20/17 17:00 03/22/17 16:59 Ondansetron HCl (Zofran Inj) 4 mg Q6H PRN IV 02/20/17 17:00 03/22/17 16:59 Enoxaparin Sodium (Lovenox Inj) 120 mg Q12 SQ 02/21/17 09:00 03/23/17 08:59 Cholecalciferol (Vitamin D Tab) 1,000 inter.unit DAILY PO 02/21/17 09:00 03/23/17 08:59 Levothyroxine Sodium (Synthroid Tab) 50 mcg DAILYBB PO 02/21/17 06:30 03/23/17 06:59 02/21/17 05:56 50 MCG Objective Vital Signs Date Time Temp Pulse Resp B/P Pulse Ox O2 Delivery O2 Flow Rate FiO2 02/21/17 07:58 36.8 76 20 107/68 96 Nasal Cannula 6.0 02/21/17 04:00 36.4 82 20 124/80 95 6.0 02/21/17 04:00 Nasal Cannula 6.0 02/21/17 00:36 36.6 89 20 143/82 92 6.0 02/21/17 00:00 92 Nasal Cannula 6.0 02/20/17 20:20 92 Nasal Cannula 6.0 02/20/17 18:50 36.7 92 24 144/84 Non-Rebreather 10.0 02/20/17 18:47 36.7 92 24 144/84 91 Nasal Cannula 10.0 02/20/17 17:37 95 24 155/90 95 02/20/17 17:00 100 24 123/84 96 Non-Rebreather 15.0 100 02/20/17 16:46 96 Non-Rebreather 15.0 100 02/20/17 16:45 87 Nasal Cannula 6.0 02/20/17 16:05 88 24 141/75 94 Nasal Cannula 5.0 02/20/17 15:43 101 20 147/105 97 Nasal Cannula 5.0 02/20/17 14:50 101 02/20/17 14:37 Nasal Cannula 4.0 89 02/20/17 14:15 95 Nasal Cannula 5.0 02/20/17 14:15 95 5.0 02/20/17 14:05 Nasal Cannula 4.0 02/20/17 13:57 36.8 112 18 178/104 83 Room Air Physical Exam General Appearance: WD/WN, + obese Eyes: PERRL, EOMI Respiratory/Chest: chest non-tender, lungs clear, normal breath sounds, no respiratory distress, no accessory muscle use Cardiovascular: regular rate, rhythm, no murmur Abdomen: normal bowel sounds, non tender, soft Extremities: no pedal edema, no calf tenderness, normal capillary refill Neurologic/Psychiatric: alert, normal mood/affect, oriented x 3 Skin: normal color, warm/dry, no rash Laboratory Results 02/21/17 05:20 Red Blood Count 4.92, Mean Corpuscular Volume 88.0, Mean Corpuscular Hemoglobin 30.3, Mean Corpuscular Hemoglobin Concent 34.4, Mean Platelet Volume 11.0, Neutrophils (%) (Auto) 82.8, Lymphocytes (%) (Auto) 9.7, Monocytes (%) (Auto) 7.1, Eosinophils (%) (Auto) 0.0, Basophils (%) (Auto) 0.1, Neutrophils # (Auto) 9.53, Lymphocytes # (Auto) 1.12, Monocytes # (Auto) 0.82, Eosinophils # (Auto) 0.00, Basophils # (Auto) 0.01 02/21/17 05:20 Test 02/20/17 14:25 02/20/17 14:30 02/21/17 05:20 Prothrombin Time 10.6 SECONDS (9.0-12.0) Prothromb Time International Ratio 1.0 (0.9-1.1) Activated Partial Thromboplast Time 26.7 SECONDS (21.0-31.0) Partial Thromboplastin Ratio 1.0 Total Bilirubin 0.6 mg/dl (0.2-1) Aspartate Amino Transf (AST/SGOT) 16 U/L (15-37) Alanine Aminotransferase (ALT/SGPT) 24 U/L (12-78) Alkaline Phosphatase 86 U/L (45-117) Total Protein 8.1 gm/dl (6.4-8.2) Albumin 3.7 gm/dl (3.4-5.0) Globulin 4.4 gm/dl (2.5-4.0) Albumin/Globulin Ratio 0.8 (0.9-2) Influenza Type A (RT-PCR) Neg for Influ A (NEG) Influenza Type B (RT-PCR) Neg for Influ B (NEG) White Blood Count 11.51 K/uL (4.8-10.8) Red Blood Count 4.92 M/uL (4.2-5.4) Hemoglobin 14.9 g/dL (12.0-16.0) Hematocrit 43.3 % (37-47) Mean Corpuscular Volume 88.0 fL (80-100) Mean Corpuscular Hemoglobin 30.3 pg (25-34) Mean Corpuscular Hemoglobin Concent 34.4 g/dl (32-36) Platelet Count 195 K/uL (130-400) Mean Platelet Volume 11.0 fL (7.4-10.4) Neutrophils (%) (Auto) 82.8 % Lymphocytes (%) (Auto) 9.7 % Monocytes (%) (Auto) 7.1 % Eosinophils (%) (Auto) 0.0 % Basophils (%) (Auto) 0.1 % Neutrophils # (Auto) 9.53 K/uL (1.4-6.5) Lymphocytes # (Auto) 1.12 K/uL (1.2-3.4) Monocytes # (Auto) 0.82 K/uL (0.11-0.59) Eosinophils # (Auto) 0.00 K/uL (0-0.5) Basophils # (Auto) 0.01 K/uL (0-0.2) RDW Standard Deviation 41.0 fL (36.4-46.3) RDW Coefficient of Variation 12.9 % (11.5-14.5) Immature Granulocyte % (Auto) 0.3 % Immature Granulocyte # (Auto) 0.03 K/uL (0.00-0.02) Anion Gap 8.0 mmol/L (3-11) Est Creatinine Clear Calc Drug Dose 80.2 ml/min Estimated GFR () 82.8 Estimated GFR (Non- 71.4 BUN/Creatinine Ratio 17.1 (10-20) Calcium Level 8.5 mg/dl (8.5-10.1) Magnesium Level 2.4 mg/dl (1.8-2.4) Troponin I 0.043 ng/ml (0-0.045) Assessment and Plan 66 year old admitted for chest pain and shortness of breath with b/l pulmonary emboli. Pulmonary emboli - Continue lovenox 1mg/kg BID - Start on warfarin 10, 10, 5 with daily INR - echo to assess for right heart strain, PFO and evaluate subacute shortness of breath on exertion Hypoxic respiratory failure - continue O2 to aim sats>94% Hypothyroidism - continue levothyroxine Code - Full Disposition - PT, OT, discharge planning, likely to need home O2, 2 step tomorrow. Resident Physician Supervision Note: I interviewed and examined the patient. Discussed with Dr. Adhikari and agree with findings and plan as documented in the note. Any exceptions or clarifications are listed here: None Documented By: Stefano Meredith feeling better now, breathing stable. extensive discussion w pt and on PEs, pathophys, dx and treatment. both with very good questions, answered to the best of my ability and to their satisfaction. separately has a question of a more chronic MERRILL that's been goign on for the last year. former smoker ~30pk/ yr. PCP ordered CXR and EKG - were OK. was set for stress test then this happened - relates very separate HPI's for current illness and more chronic MERRILL though vitals noted, nad, breathing unlabored but is on 6L NC. no pallor or icterus CT, labs reviewed. ap acute PE w acute hypoxic respiratory failure and acute R heart strain -O2, supportive care, anticoagulation. likely will need home O2. wants warfarin for anticoagulation chronic MERRILL -nothing appearing acutely unstable - suspect CAD vs occult COPD. neither showing serious decompensation despite PEs so if either present, doubt very severe. would proceed w stress once she's recovered enough from PEs to have adequate testing (cardiology eval if seems more unstable as time progresses) and PFTs in ~1 month. if negative, MERRILL may simply be weight/deconditioning. otherwise as above Resident Tracking Resident Involvement: Resident Care Provided Care Provided: Adult Hospital Medicine
[2017-02-21] MEDS: CHOLECALCIFEROL 1000 INTER.UNIT TAB PO SCH (09:39)
[2017-02-21] MEDS: ENOXAPARIN 120 MG/0.8 ML SYR SQ SCH ×2 (09:41→20:19)
[2017-02-21] MEDS ORDERED: PERFLUTREN LIPID MICROSPHERE (DEFINITY) IV ONE (10:34)
[2017-02-21] MEDS: WARFARIN SOD 10 MG TAB PO SCH (16:32)
--- NOTE | 2017-02-21 17:06 | ECHOCARDIOGRAM REPORT ---
*NOTICE TO RECEIVING LIBERTARIAN AGENCY This information is strictly Confidential and protected under [place] law. [place] law prohibits you from making any further disclosure of this information unless further disclosure is expressly permitted by the written consent of the person to whom it pertains or is authorized by law. A general authorization for the release of medical or other information is not sufficient for this purpose. Hospital accepts no responsibility if the information is made available to any other person, INCLUDING THE PATIENT. Interpretation Summary * Name: SUSANA DRIVER Study Date: 02/21/2017 08:41 AM BP: 124/80 mmHg * Patient Location: .[facility]\S\N280\S\2 HR: 82 * : 1950 (M/d/yyyy) Gender: Female Height: 64 in * Age: 66 yrs Ethnicity: CA Weight: 256 lb * Ordering Physician: Clayton Arita * Referring Physician: UNKNOWN * Performed By: Jaskaran Martinez RCS * * Reason For Study: PE, Hypoxia * BSA: 2.2 m2 * -- Conclusions -- * Left ventricular systolic function is normal. * No regional wall motion abnormalities noted. * Ejection Fraction = 60-65%. * There is borderline concentric left ventricular hypertrophy. * Grade I diastolic dysfunction, (abnormal relaxation pattern). * There is mild tricuspid regurgitation. Procedure Details * A complete two-dimensional transthoracic echocardiogram was performed (2D, M-mode, Doppler and color flow Doppler). * There were technical limitations due to patient'sbody habitus * A contrast injection of Definity was performed to improve assessment of LV function. * Contrast was injected into an intravenous site in the left arm. * One vial of Definity ultrasound contrast was diluted in normal saline to a total volume of 10 ml. A total of '2' ml of solution was administered during imaging. * Lot # [id number] of Definity utilized for procedure. * Expiration date . * The attending nurse who injected the contrast agent was Jesse Lombardo RN. Left Ventricle * The left ventricle is normal in size. * There is borderline concentric left ventricular hypertrophy. * Left ventricular systolic function is normal. * Ejection Fraction = 60-65%. * No regional wall motion abnormalities noted. Right Ventricle * The right ventricle is not well visualized. * The right ventricular systolic function is normal as assessed by tricuspid annular plane systolic excursion (TAPSE) (normal >1.5 cm). Atria * The left atrial size is normal. * Borderline right atrial enlargement. * There is no evidence of atrial septal defect, but resolution does not allow assessment for a patent foramen ovale. Mitral Valve * The mitral valve is grossly normal. * Significant mitral regurgitation is absent. Tricuspid Valve * The tricuspid valve is not well visualized, but is grossly normal. * There is mild tricuspid regurgitation. * Right ventricular systolic pressure is normal. Aortic Valve * The aortic valve is not well visualized. * The aortic valve opens well. * No hemodynamically significant valvular aortic stenosis. * No aortic regurgitation is present. Pulmonic Valve * The pulmonary valve is not well seen, but the Doppler examination is normal without significant regurgitation or stenosis. Great Vessels * The aortic root is normal size. * The pulmonary is not well visualized. Pericardium/Pleural * There is no pericardial effusion. Great Vessels * Normal inferior vena cava size and collapsability with sniff indicates a normal right atrial pressure of 3 mmHg Left Ventricular Diastolic Function * Grade I diastolic dysfunction, (abnormal relaxation pattern). MMode 2D Measurements and Calculations IVSd 1.0 cm IVSs 1.3 cm LVIDd 4.2 cm LVIDs 3.2 cm LVPWd 1.0 cm LVPWs 1.3 cm IVS/LVPW 0.99 FS 24.2 % EDV(Teich) 77.8 ml ESV(Teich) 40.0 ml EF(Teich) 48.6 % EDV(cubed) 73.2 ml ESV(cubed) 31.9 ml EF(cubed) 56.5 % % IVS thick 27.0 % % LVPW thick 28.9 % LV mass(C)d 139.9 grams LV mass(C)dI 64.4 grams/m\S\2 LV mass(C)s 134.5 grams LV mass(C)sI 61.9 grams/m\S\2 CO(Teich) 2.9 l/min CI(Teich) 1.4 l/min/m\S\2 SV(Teich) 37.8 ml SI(Teich) 17.4 ml/m\S\2 CO(cubed) 3.2 l/min CI(cubed) 1.5 l/min/m\S\2 SV(cubed) 41.4 ml SI(cubed) 19.0 ml/m\S\2 LVAd ap4 24.4 cm\S\2 LVLd ap4 7.4 cm EDV(MOD-sp4) 67.0 ml LVAs ap4 12.0 cm\S\2 LVLs ap4 5.9 cm ESV(MOD-sp4) 20.0 ml EF(MOD-sp4) 70.1 % LVAd ap2 16.5 cm\S\2 LVLd ap2 6.1 cm EDV(MOD-sp2) 38.0 ml LVAs ap2 9.9 cm\S\2 LVLs ap2 5.4 cm ESV(MOD-sp2) 15.0 ml EF(MOD-sp2) 60.5 % CO(MOD-sp4) 3.7 l/min CI(MOD-sp4) 1.7 l/min/m\S\2 SV(MOD-sp4) 47.0 ml SI(MOD-sp4) 21.6 ml/m\S\2 CO(MOD-sp2) 1.8 l/min CI(MOD-sp2) 0.83 l/min/m\S\2 SV(MOD-sp2) 23.0 ml SI(MOD-sp2) 10.6 ml/m\S\2 Doppler Measurements and Calculations MV E max ava 53.4 cm/sec MV A max ava 70.6 cm/sec MV E/A 0.76 MV P1/2t max ava 60.3 cm/sec MV P1/2t 104.8 msec MVA(P1/2t) 2.1 cm\S\2 MV dec slope 168.4 cm/sec\S\2 MV dec time 0.30 sec Ao V2 max 129.6 cm/sec Ao max PG 6.7 mmHg Ao max PG (full) 1.9 mmHg LV V1 max PG 4.8 mmHg LV V1 max 110.0 cm/sec PA V2 max 90.8 cm/sec PA max PG 3.3 mmHg TR max ava 254.4 cm/sec
[2017-02-22] VITALS: O2SAT 92
[2017-02-22] MEDS: LEVOTHYROXINE 50 MCG TAB PO SCH (05:49)
[2017-02-22 06:06] LABS: HEMATOCRIT 43.9 % (37-47); MEAN CELL VOLUME 91.3 fL (80-100); MEAN CORPUSCULAR HEMOGLOBIN 29.9 pg (25-34); MEAN CORPUSCULAR HGB CONC 32.8 g/dl (32-36); MEAN PLATELET VOLUME 10.6 fL (7.4-10.4); PLATELET COUNT 182 K/uL (130-400); RED BLOOD COUNT 4.81 M/uL (4.2-5.4); WHITE BLOOD COUNT 8.26 K/uL (4.8-10.8)
[2017-02-22 06:28] LABS: PROTHROMBIN TIME (PATIENT) 11.2 SECONDS (9.0-12.0)
[2017-02-22 06:45] LABS: CREATININE 0.76 mg/dl (0.60-1.20)
[2017-02-22 07:28] VITALS: BP 109/72; PULSE 67; TEMP 36.8; O2SAT 98
[2017-02-22] MEDS: CHOLECALCIFEROL 1000 INTER.UNIT TAB PO SCH (07:39)
[2017-02-22] MEDS: ENOXAPARIN 120 MG/0.8 ML SYR SQ SCH (07:40)
[2017-02-22 08:00] VITALS: O2SAT 96
--- NOTE | 2017-02-22 08:24 | Family Medicine Progress Note ---
Progress Note Date of Service Feb 22, 2017. Subjective Pt evaluation today including: conversation w/ patient, physical exam, chart review, lab review, review of studies, review of inpatient medication list Voiding: no voiding problems, no incontinence No acute events overnight. Keen to go home. Discussed if we are not able to wean off O2 then will have to consider inpatient rehabilitation. All Other Systems: Reviewed and Negative Medications Current Inpatient Medications Medications (Trade) Dose Ordered Sig/Nilda Route Start Time Stop Time Status Last Admin Dose Admin Ioversol (Optiray 320) 100 ml UD PRN IV 02/20/17 14:30 02/24/17 14:29 Acetaminophen (Tylenol Tab) 650 mg Q4H PRN PO 02/20/17 17:00 03/22/17 16:59 Ondansetron HCl (Zofran Inj) 4 mg Q6H PRN IV 02/20/17 17:00 03/22/17 16:59 Enoxaparin Sodium (Lovenox Inj) 120 mg Q12 SQ 02/21/17 09:00 03/23/17 08:59 02/22/17 07:40 120 MG Cholecalciferol (Vitamin D Tab) 1,000 inter.unit DAILY PO 02/21/17 09:00 03/23/17 08:59 02/22/17 07:39 1,000 INTER.UNIT Levothyroxine Sodium (Synthroid Tab) 50 mcg DAILYBB PO 02/21/17 06:30 03/23/17 06:59 02/22/17 05:49 50 MCG Warfarin Sodium (Coumadin Tab) 10 mg DAILY@16 PO 02/21/17 16:00 03/23/17 15:59 02/21/17 16:32 10 MG Objective Vital Signs Date Time Temp Pulse Resp B/P Pulse Ox O2 Delivery O2 Flow Rate FiO2 02/22/17 07:28 36.8 67 18 109/72 98 Nasal Cannula 6.0 02/22/17 00:00 92 Nasal Cannula 6.0 02/21/17 23:19 36.6 77 20 97/61 97 6.0 02/21/17 16:30 Nasal Cannula 6.0 02/21/17 15:30 36.6 78 18 101/67 94 Nasal Cannula 6.0 02/21/17 12:00 96 Nasal Cannula 6.0 4/18/17 11:24 94 Physical Exam General Appearance: no apparent distress, + obese Respiratory/Chest: lungs clear, normal breath sounds, no respiratory distress, no accessory muscle use Cardiovascular: regular rate, rhythm, no murmur Abdomen: normal bowel sounds, non tender, soft Extremities: no pedal edema, no calf tenderness, normal capillary refill Neurologic/Psychiatric: alert, oriented x 3 Skin: normal color, no rash Laboratory Results 02/22/17 05:46 02/22/17 05:46 Test 02/22/17 05:46 Red Blood Count 4.81 M/uL (4.2-5.4) Mean Corpuscular Volume 91.3 fL (80-100) Mean Corpuscular Hemoglobin 29.9 pg (25-34) Mean Corpuscular Hemoglobin Concent 32.8 g/dl (32-36) RDW Standard Deviation 43.2 fL (36.4-46.3) RDW Coefficient of Variation 13.0 % (11.5-14.5) Mean Platelet Volume 10.6 fL (7.4-10.4) Prothrombin Time 11.2 SECONDS (9.0-12.0) Prothromb Time International Ratio 1.0 (0.9-1.1) Anion Gap 7.0 mmol/L (3-11) Est Creatinine Clear Calc Drug Dose 88.7 ml/min Estimated GFR () 93.4 Estimated GFR (Non- 80.6 BUN/Creatinine Ratio 25.0 (10-20) Calcium Level 8.0 mg/dl (8.5-10.1) Assessment and Plan 66 year old admitted for chest pain and shortness of breath with b/l pulmonary emboli. Pulmonary emboli - Continue Lovenox 1mg/kg BID - Started on warfarin 10 mg 02/21, 10 mg today, 6mg tomorrow, INR Monday if going home. - echo showed no wall motion abnormalities Hypoxic respiratory failure - continue O2 wean to sats>94% - will need 2 step before d/c and likely to need home O2 Hypothyroidism - continue levothyroxine Code - Full Disposition - Aim home today as long as the oxygen can be weaned down somewhat Resident Tracking Resident Involvement: Resident Care Provided Care Provided: Adult [facility]
[2017-02-22] MEDS ORDERED: LORATADINE 10 MG TAB PO ONE (13:30)
[2017-02-22] MEDS ORDERED: LVNIS120 SQ (14:32)
[2017-02-22] MEDS ORDERED: WARF4TAB43 PO (14:32)
--- NOTE | 2017-02-22 14:56 | Discharge Instructions ---
Discharge Instructions Date of Service Feb 22, 2017. Admission Reason for Admission: Bilateral Pulmonary Embolism, Hypoxia Discharge Discharge Diagnosis / Problem: (1) Bilateral pulmonary embolism (2) Hypoxia VTE Date & Time Date of VTE Diagnosis: Feb 20, 2017 Time of VTE Diagnosis: 16:43 Discharge Goals Goal(s): Decrease discomfort, Improve function, Increase independence, Improve disease control Activity Recommendations Activity Limitations: as noted below Lifting Limitations: gradually increase as tolerated Exercise/Sports Limitations: gradually increase as tolerated . Instructions / Follow-Up Instructions / Follow-Up Please take warfarin 6 mg tomorrow and then use script to get INR on Monday. Further dosing to be determined by you PCP at that time. Continue to take the Lovenox until advised to stop by either your PCP or the anticoagulation clinic. Medication Instructions: * Warfarin is a medicine prescribed to prevent blood clots * Warfarin will thin your blood and help prevent new clots * Take your medications exactly as directed * Never skip a dose. Never take a double dose. If you miss a dose, take it as soon as you remember * It is important for your doctor to monitor your prothrombin time (PT). This is a lab test * Keep your appointment for lab tests Risk of Adverse Drug Reactions and Interactions: * Warfarin increases your risk of bleeding * The food you eat and other medications you take can affect how Warfarin works in your body * Ask your doctor about daily aspirin therapy * It is very important to talk with your doctor about all of the other medicines , antibiotics, vitamins or herbal products that you are taking * All of your medication must be approved by your doctor, including new medicines, as well as medicines you have taken before you started taking Warfarin Diet: * In order for Warfarin to work properly, it is important to keep your intake of Vitamin K as consistent as possible * You should avoid any sudden change in Vitamin K intake * Report any significant changes in your diet or weight to your doctor Call your Primary Care doctor if you experience any of the following: * Swelling or Pain in your leg * Sudden, continuous pain deep in a muscle * Pain that worsens when you are active or when you stand still for a long time * Chest Pain * Sudden Shortness of Breath * Rapid or pounding heart beat * Fainting * Dizziness * Cough with blood or bloody sputum * Sweating more than normal * Bruises * Heavy or uncontrolled bleeding * Blood in your urine, stool or vomit * Black or tarry stools Caring for Your Self at Home: * Avoid sitting, standing or lying down for long periods without moving your legs and feet * When traveling by car, stop to get out and move around at least once every 3 hours * On long airplane, train or bus rides, get up and move around when possible * If you can't get up, wiggle your toes and tighten your calves to keep your blood moving Follow Up: It is important for you to keep your follow up appointments with your medical provider. Current Hospital Diet Patient's current hospital diet: Regular Diet Discharge Diet Recommended Diet: Regular Diet Pending Studies Studies pending at discharge: no Work Instructions Return To Work: after follow-up Medical Emergencies . Who to Call and When: Medical Emergencies: If at any time you feel your situation is an emergency, please call 911 immediately. . Non-Emergent Contact Non-Emergency issues call your: Primary Care Provider Contact Number: [phone] Call Non-Emergent contact if: you have any medication questions . . "Provider Documentation" section prepared by Kaleb Adhikari. . VTE Core Measure Inpt VTE Proph given/why not?: Enoxaparin (Lovenox)SQ (treatment dose) Reason no anticoag overlap I/P: Treatment provided - N/A Reason no anticoag overlap @DC: Treatment provided - N/A
[2017-02-22 15:14] VITALS: BP 109/72; PULSE 67; TEMP 36.8; O2SAT 96
[2017-02-22] MEDS: WARFARIN SOD 10 MG TAB PO SCH (15:42)
--- NOTE | 2017-02-22 16:35 | Discharge Summary ---
Discharge Summary Date of Service Feb 22, 2017. (Kaleb Adhikari MD) Discharge Summary Admission Date: Feb 20, 2017 at 16:54 Discharge Date: Feb 22, 2017 Discharge Disposition: Home Principal Diagnosis: First provoked bilateral pulmonary emboli Problems/Secondary Diagnoses: Hypoxia - needing home 2L O2 on discharge with ambulation (Kaleb Adhikari MD) Medication Reconciliation New Medications: Warfarin Sodium (Warfarin Sodium) 2 Mg Tab 3 TAB PO UD for 7 Days, #30 TAB 0 Refills 02/23 Take 6 mg (x3 2mg tablets) 02/24 Have INR check with [facility] and further dosing dependant on this. Enoxaparin (Lovenox) 120 Mg/0.8 Ml Inj 120 MG SQ Q12 for 7 Days, #14 EA Continued Medications: Cholecalciferol (Vitamin D) 1,000 Unit Tab 1000 PO DAILY Glucosamine Sulfate (Glucosamine) 1,000 Mg Tab 2000 MG PO DAILY, TAB Levothyroxine Sodium (Levothyroxine Sodium) 50 Mcg Tab 1 TAB PO DAILY for 90 Days, #90 TAB 3 Refills Loratadine (Claritin) 10 Mg Tab Ocuvite Preservision (Ocuvite Preservision) 1 Tab Tab 1 TAB PO DAILY, TAB Discharge Exam Please see progress note from today (Kaleb Adhikari MD) Hospital Course Patient was referred to the ER after being seen in her PCPs office for ongoing shortness of breath and hypoxia. D-dimer was raised and subsequent CTPA showed bilateral pulmonary emboli. Given her weight, age and lack of mobility with working at her desk over the last 2 weeks this is thought to be provoked and given 1st occurrence recommend 3-6 months of anticoagulation and no hypercoagulable workup was done. She is reportedly up to date on routine cancer screening (noted benign recent workup for breast findings on mammogram). On discussion with her regarding anticoagulation options she elected for warfarin with initial Lovenox coverage. She started warfarin 10mg on 02/21, 02/22 10mg, she has been prescribed 6 mg 02/23 and will have PTINR on 02/24 (results will be sent to myself Dr Adhikari). I will dose her over the weekend but then she will follow up in anticoagulation clinic on Monday. Of note she has been having shortness of breath on exertion for many months and had a stress echo booked. This may have been developing pulmonary emboli however would certainly recommend completing the workup after she is better from the PE stand point. Resting echo was done as inpatient which reassuringly showed no wall motion abnormalities with normal LVEF but she does have borderline left ventricular hypertrophy. Unfortunately she was still requiring oxygen on discharge. She is on no oxygen at rest but 2L on ambulation. Please reassess her need for this at subsequent visits. Follow up arranged as below. Kind regards, Dr Kaleb Adhikari Total Time Spent: Greater than 30 minutes This includes examination of the patient, discharge planning, medication reconciliation, and communication with other providers. (Kaleb Adhikari MD) Resident Physician Supervision Note: I interviewed and examined the patient. Discussed with Dr. Adhikari and agree with findings and plan as documented in the note. Any exceptions or clarifications are listed here: None Documented By: Stefano Meredith feeling better, doing well enough on O2 to be safe for discharge. extensive discussions w pt and again on PE/treatment and follow up, also extensively in detail discussed anticoagulation, safety, when to worry, food interactions, f/u INR monitoring, etc. all questions answered to the best of my ability. --acute provoked (age, weight, sedentary) PEs - doing better - likely 3 months of anticoagulation based on improvement, followed by aggressive secondary prevention (?asa + likley more aggressive preventative measures when/if in more VTE-provoking situations (ie future surgery, long travel, etc)) ---hypoxia - due to above ---R heart strain - due to above, improving stable for home next INR 4/21 lovenox overlap Total Time Spent: Greater than 30 minutes (Stefano Meredith, D.O.) Discharge Instructions Please refer to the electronic Patient Visit Report (Discharge Instructions) for additional information. (Kaleb Adhikari MD) Follow-Up Follow up with Dr Martin Díaz 1:30pm [place] [id number] [facility] on MondayFebruary 27 at 10:00 am (Kaleb Adhikari MD) Additional Copies To Verito Salazar D.O. Resident Tracking Resident Involvement: Resident Care Provided Care Provided: Adult [facility] (Kaleb Adhikari MD)
[2017-06-08] MEDS ORDERED: WARF5TAB7 PO (10:29)
[2017-06-08] MEDS ORDERED: WARF7.5T4 PO (10:29)
[2017-07-06] MEDS ORDERED: DIAZ2TAB PO (11:09)
== END 2017-02-22 16:46 | disposition home or self-care (01) | DRG 175 ==
LOC: ENRESERVTM → ENRESERVDT → C.EDB 13:58 → C.MED 16:54
PROVIDERS: ADMIT Internal Medicine; ATTEND Family Medicine
DX: I26.99 Other pulmonary embolism without acute cor pulmonale (principal); J96.01 Acute respiratory failure with hypoxia; E03.9 Hypothyroidism, unspecified; R06.09 Other forms of dyspnea; I51.7 Cardiomegaly; R79.89 Other specified abnormal findings of blood chemistry; Z79.899 Other long term (current) drug therapy; Z87.891 Personal history of nicotine dependence; Z86.69 Personal history of other diseases of the nervous system and sense organs

== ENCOUNTER → 2017-06-19 | Outpatient (CLI) | payer BC ==
[~2017-06-19] MED LIST changes: -AGM875; +CHOL100010 PO; +DIAZ2TAB PO; -FAMO20TA11; +GLUC10007 PO; +LEVO50TA6 PO; +MULT-190 PO; +WARF5TAB7 PO; +WARF7.5T4 PO
--- NOTE | 2017-06-19 11:00 | DIAGNOSTIC IMAGING REPORT ---
ABDOMEN COMPLETE (US) HISTORY: Pulmonary embolus UNPROVOKED PE. COMPARISON: 10/05/2009 FINDINGS: Pancreas: The pancreas demonstrates a normal echotexture. Liver: Fatty infiltration. Gallbladder: Small polyp in the region of the gallbladder neck. No shadowing gallstones. CBD: 3 mm Kidneys: No hydronephrosis. Spleen: Normal in size. Aorta: Normal in caliber. IVC: Patent. IMPRESSION: Small gallbladder polyp. Fatty infiltration of the liver. Otherwise negative study. The above report was generated using voice recognition software. It may contain grammatical, syntax or spelling errors. Electronically signed by: Nico Julien M.D. 06/19/2017 10:59 AM Dictated Date/Time: 06/19/2017 10:57 AM
== END | disposition home or self-care (01) ==
LOC: C.ULTR 09:41
PROVIDERS: ATTEND Internal Medicine Hematology & Oncology
DX: I26.99 Other pulmonary embolism without acute cor pulmonale (principal)

== ENCOUNTER → 2017-12-04 | Outpatient (CLI) | payer OTHER, MEDICARE ==
[~2017-12-04] MED LIST changes: +OMEG10007 PO
== END | disposition home or self-care (01) ==
LOC: C.MAMM 13:00
PROVIDERS: ATTEND Family Medicine
DX: M85.89 Other specified disorders of bone density and structure, multiple sites (principal)

== ENCOUNTER 2024-07-11 16:05 | Inpatient (IN) ==
--- NOTE | 2024-07-11 17:21 | Emergency Department Note ---
Impression & Plan Hyperglycemia, TAL (acute kidney injury), Acute UTI (urinary tract infection) ED Provider Note HISTORY OF PRESENT ILLNESS: Patient is a 74-year-old female presenting with hyperglycemia. Patient reports that she is currently undergoing treatment for endometrial cancer. Reports she ended chemo back in January 2024, and has been on monthly Keytruda. She reports has been getting recurrent laboratory workup to monitor her levels before getting her Keytruda dosing. Reports that she was supposed to get a dose of Keytruda this week, but her glucose levels over the last few months have been significantly elevated. She was started on metformin 1000 mg daily and recently started on Mounjaro, with little improvement in her blood glucose readings. Reports she takes her fingerstick glucose daily at home and the home glucometer is reading "HIGH." She reports she was referred to the emergency department by her doctor, given that her laboratory workup today showed her glucose was over 500. Patient denies any significant dysuria or hematuria, but does report that she was recently treated for urinary tract infection about a month ago. Denies any fevers. Denies any chest pain, shortness of breath, nausea or vomiting. Denies any abdominal pain. Reports feeling slightly rundown and tired over the last few weeks. Denies any recent sick contact exposures. Reports that since her last Mounjaro injection, she has not had much in terms of an appetite. ROS: as above PHYSICAL EXAM: Constitutional: Patient appears in no acute distress. HENT: Head: Normocephalic and atraumatic. Eyes: EOMI, PERRL Mouth/Throat: Mucous membranes moist. Neck: Trachea midline. Neck supple. Cardiovascular: Irregular rhythm. No murmurs, rubs or gallops. Intact distal pulses. Pulmonary/Chest: No respiratory distress. Breath sounds clear and equal bilaterally. No wheezes or rales. Abdominal: Abdomen soft, no tenderness, rebound or guarding. Musculoskeletal: No edema, tenderness or deformity noted. Skin: Warm and dry. No rash, erythema, pallor or cyanosis Psychiatric: Appropriate mood and affect for situation. Neurological: Alert and keenly responsive. CN II-XII grossly intact, moving all extremities equally and fully. MDM: - Vitals signs stable. - History obtained via patient. History as above. - Chronic conditions affecting care: Endometrial cancer; hypothyroidism; A-fib; HLD; hx of PE - Differential diagnoses include, but are not limited to: DKA; UTI; pneumonia; electrolyte abnormality; dysrhythmia - Order placed for continuous cardiac monitoring. At this time, monitor showed rate of 89 bpm with irregular rhythm, per my interpretation. - External medical records reviewed. Hematology/oncology report dated 03/27/2024 was reviewed. 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 She underwent 6 cycles of carboplatin, paclitaxel, pembrolizumab therapy. Her last cycle was on 01/24/2024. - EKG interpreted by myself showed atrial fibrillation. Rate 101 bpm. QT 344. No acute ischemic changes. - Laboratory workup interpreted by myself showed normal WBC; normal PT/INR; hyponatremia (Na 127 - corrects to 134-138 when accounting for glucose; elevated anion gap (16); TAL (Cr 1.27); hyperglycemia (glcuose 550); normal troponin; normal AST/ALT; normal lipase - Patient given 1L NS in ER. - Patient's laboratory and urinalysis workup from earlier today was reviewed. Patient had a urine that showed evidence of infection. She was given 2 g of IV Rocephin in the emergency department. - Given patient's poorly controlled glucose, in the setting of an elevated anion gap and urinary tract infection, will admit to hospital service for further evaluation and management. - Discussion was had with field case manager about patient's case and need for admission - Hospitalist, Dr. Plasencia, consulted for admission - [facility] ASSESSMENT AND PLAN: Diagnosis: Hyperglycemia; TAL; acute UTI Plan: Admit Past Med/Surg History Problem List (Updated 07/11/24 @ 20:23 by Kera Gaines MD) Acute UTI (urinary tract infection) (Acute) TAL (acute kidney injury) (Acute) Hyperglycemia (Acute) Endometrial ca Acute heart failure with preserved ejection fraction (HFpEF) Postmenopausal bleeding Persistent atrial fibrillation Encounter for pre-operative examination History of pulmonary embolism Dyslipidemia, goal LDL below 100 Acute decompensated heart failure Atrial fibrillation with RVR (Acute) Hypoxia (Acute) Anticoagulant long-term use eliquis bid Cardiomyopathy Asthma last used rescue a couple weeks ago Hypothyroid Medical History (Updated 07/11/24 @ 20:23 by Kera Gaines MD) Endometrial cancer plans to start chemo 10/10/23 Lymphedema legs bilat Prediabetes pt denies Hypertension DVT (deep venous thrombosis) 2016 Atrial fibrillation on metoprolol/eliquis--Follows with Dr. Chandler Heart failure pt states echo normal last done 08/2023 History of COVID-19 Dx 10/12/22 (home test) Symptoms at time: sinus congestion, cough with mucous, low grade fever, fatigue > resolved History of kidney stones Temporomandibular joint disorder has spasms at dentist office Macular degeneration of right eye mild Bilateral pulmonary embolism 2017, on Eliquis ? reason Surgical History (Updated 10/06/23 @ 11:23 by Britney Gayle, RN) Port-A-Cath in place (10/05/23) Insertion Right Internal Jugular Access Port with Fluoroscopy(Right) - Jose Gallo MD, FACS History of dilatation and curettage History of hysterectomy History of cardioversion 11/09/22 @ [facility] History of breast surgery right benign cyst removal History of bilateral breast biopsy benign History of cystoscopy History of wisdom tooth extraction History of tonsillectomy and adenoidectomy Family History Other Family history not known due to adoption Social History (Updated 09/26/23 @ 16:19 by Amanda Snowden, CYNDI) Smoking Status: Former smoker Tobacco Type: Cigarettes Age Quit Using Tobacco: 48; Second Hand Exposure: No; Do You Dip or Chew Tobacco: No; Hx Alcohol Use: No Preferred Language: [place] Citizen Communication Ability: Effective Visual Impairment: No Limitations Multi Care Technician Required: No Beliefs That Will Affect Care: None marital status: Current Living Situation: Spouse current occupational status: retired How many Children do You have: 1 Feels Safe at Home: Yes Diet: regular during the past year weight has: decreased > 10 lbs Assistive Devices: Glasses Allergies Allergies Allergy/AdvReac Type Severity Reaction Status Date / Time diphenhydramine Allergy Severe Severe Verified 11/30/23 14:30 [From Benadryl] facial swelling erythromycin base AdvReac Intermediate Upset Verified 11/30/23 14:30 stomach spironolactone AdvReac Intermediate muscle pain Verified 11/30/23 14:30 Home Meds Home Medications Medication Instructions Recorded Confirmed levothyroxine 50 mcg tablet 50 mcg PO QAM 07/31/18 02/21/24 (Synthroid) albuterol sulfate 90 mcg/actuation 2 puff inhalation Q4H PRN 09/01/22 02/21/24 aerosol inhaler Shortness Of Breath Or Wheezing buspirone 5 mg tablet 5 mg PO BID PRN Anxiety 09/01/22 02/21/24 apixaban 5 mg tablet (Eliquis) 5 mg PO BID 10/31/22 02/21/24 lisinopril 2.5 mg tablet 2.5 mg PO QAM 10/31/22 02/21/24 magnesium 200 mg tablet 200 mg PO HS 10/31/22 02/21/24 vit C 250 mg-vit E 90 mg-zinc 40 1 tab PO HS 10/31/22 02/21/24 mg-copper 1 [id number] capsule (PreserVision AREDS-2) torsemide 20 mg tablet (Soaanz) 20 mg PO DAILY PRN Edema 03/09/23 02/21/24 fluticasone propionate 44 1 puff inhalation BID PRN 06/06/23 02/21/24 mcg/actuation HFA aerosol inhaler Shortness Of Breath (Flovent HFA) loratadine 10 mg tablet (Claritin) 10 mg PO DAILY PRN Allergy Symptoms 06/06/23 02/21/24 Previous Rx's Medication Instructions Recorded triamterene 37.5 1 cap PO QAM #90 caps 09/05/23 mg-hydrochlorothiazide 25 mg capsule metoprolol succinate 50 mg 75 mg (1.5 x 50 mg) PO BID #300 12/01/23 tablet,extended release 24 hr tabs Results & Data (ED) Vital Signs Vital Signs - 24 hr 07/11/24 16:18 07/11/24 19:39 07/11/24 19:39 Temperature 36.1 C L Temperature Source Temporal Artery Scan Pulse Rate 89 Respiratory Rate 16 Respiratory Effort / Characteristics Non-Labored Spontaneous Respiratory Depth Normal Respiratory Pattern Regular Blood Pressure 101/59 L Blood Pressure [Right Arm] 105/66 Blood Pressure Mean 73 Blood Pressure Mean [Right Arm] 79 Blood Pressure Position [Right Arm] Lying Pulse Oximetry 95 94 Oxygen Delivery Method Room Air Room Air Sepsis Recent Fever Within 48 Hours No Sepsis New/Unexplained Change in Mental Status No Sepsis Action Taken by Nursing No Action Required Laboratory Data 07/11/24:00 07/11/24 17:00 Lab Results 07/11/24 07/11/24 Range/Units 17:00 17:03 WBC 7.01 (4.8-10.8) K/ul RBC 4.68 (4.20-5.40) M/uL Hgb 14.3 (12.0-16.0) g/dl Hct 41.5 (37.0-47.0) % MCV 88.7 (80.0-100.0) fL MCH 30.6 (25.0-34.0) pg MCHC 34.5 (32.0-36.0) g/dL RDW Std Deviation 40.8 (36.4-46.3) fL RDW Coeff of Sandra 12.5 (11.5-14.5) % Plt Count 191 (130-400) K/uL MPV 11.4 (9.4-12.4) fL Immature Gran % (Auto) 0.4 % Neut % (Auto) 75.9 % Lymph % (Auto) 16.0 % Franklin % (Auto) 6.6 % Eos % (Auto) 0.7 % Baso % (Auto) 0.4 % Neut # (Auto) 5.32 (1.40-6.50) K/uL Lymph # (Auto) 1.12 L (1.20-3.40) K/uL Franklin # (Auto) 0.46 (0.11-0.59) K/uL Eos # (Auto) 0.05 (0.00-0.50) K/uL Baso # (Auto) 0.03 (0.00-0.20) K/uL Immature Gran # (Auto) 0.03 (0.01-0.20) K/uL PT 10.9 (9.0-12.0) Seconds INR 1.0 (0.9-1.1) Sodium 127 L (136-145) mmol/L Potassium 4.8 (3.5-5.1) mmol/L Chloride 95 L (98-107) mmol/L Carbon Dioxide 16 L (21-32) mmol/L Anion Gap 16 H (3-11) BUN 30 H (6-23) mg/dl Creatinine 1.27 H (0.6-1.2) mg/dl Est Cr Clr Drug Dosing 45.2 ml/min Est GFR ( Amer) 47.5 ml/min Est GFR (Non-Af Amer) 41.0 ml/min BUN/Creatinine Ratio 23.6 H (10-20) Glucose 550 H* (70-99(Fasting)) mg/dl POC Glucose 486 H* (70-99) mg/dl Calcium 9.4 (8.6-10.3) mg/dl Total Bilirubin 0.8 (0.2-1.0) mg/dl AST 13 (13-39) U/L ALT 12 (7-52) U/L Alkaline Phosphatase 67 (34-104) U/L Troponin I High Sens 6.8 (0-14) pg/ml Total Protein 6.9 (6.0-8.3) gm/dl Albumin 3.9 (3.4-5.0) gm/dl Globulin 3.0 (2.5-4.0) gm/dl Albumin/Globulin Ratio 1.3 (0.9-2) Lipase 48 (11-82) U/L Administered Medications Discontinued Medications Sodium Chloride (Nss) 1,000 mls @ 999 mls/hr IV .Q1H1M ONE Stop: 07/11/24 17:51 Last Admin: 07/11/24 18:20 Dose: 999 mls/hr Documented By: [facility] Ceftriaxone Sodium (Rocephin) 2,000 mg in 50 mls @ 100 mls/hr IV NOW STA Stop: 07/11/24 17:20 Last Infusion: 07/11/24 19:07 Dose: Infused Documented By: [facility] Admin: 07/11/24 18:20 Dose: 100 mls/hr Documented By: [facility] Discharge Plan Visit Data Chief Complaint: Abnormal Labs/Diagnostic Testing Stated Complaint: HYPERGLYCEMIA, KIDNEY NUMBERS OFF, NEEDS FLUIDS ED Provider: Kera Gaines Discharge Problem: Hyperglycemia, TAL (acute kidney injury), Acute UTI (urinary tract infection) Forms Stand Alone Forms: My [facility] Prescriptions Prescriptions: No Action levothyroxine [Synthroid] 50 mcg Tablet 50 mcg PO QAM metoprolol succinate 50 mg tablet extended release 24 hr 75 mg PO BID Qty: 300 3RF torsemide [Soaanz] 20 mg tablet 20 mg PO DAILY PRN (Reason: Edema) Rx Instructions: 20 mg orally three times a week; triamterene-hydrochlorothiazid 37.5-25 mg capsule 1 cap PO QAM Qty: 90 3RF buspirone 5 mg tablet 5 mg PO BID PRN (Reason: Anxiety) albuterol sulfate 90 mcg/actuation HFA aerosol inhaler 2 puff INHALATION Q4H PRN (Reason: Shortness Of Breath Or Wheezing) loratadine [Claritin] 10 mg Tablet 10 mg PO DAILY PRN (Reason: Allergy Symptoms) fluticasone propionate [Flovent HFA] 44 mcg/actuation Hfa Aerosol Inhaler 1 puff INHALATION BID PRN (Reason: Shortness Of Breath) Rx Instructions: administer with spacer lisinopril 2.5 mg Tablet 2.5 mg PO QAM magnesium 200 mg Tablet 200 mg PO HS Eliquis 5 mg Tablet 5 mg PO BID PreserVision AREDS-2 250-90-40-1 mg Capsule 1 tab PO HS Referrals Referrals: Eduardo Khan MD [Primary Care Provider] -
[2024-07-11 17:23] LABS: Basophils # (auto) 0.03 K/uL (0.00-0.20); Basophils % (auto) 0.4 %; Eosinophils # (auto) 0.05 K/uL (0.00-0.50); Eosinophils % (auto) 0.7 %; Hematocrit (blood only) 41.5 % (37.0-47.0); Hemoglobin 14.3 g/dl (12.0-16.0); Immature Granulocytes # (auto) 0.03 K/uL (0.01-0.20); Immature Granulocytes % (auto) 0.4 %; Lymphocytes # (auto) 1.12 K/uL (1.20-3.40); Mean Corpuscular Hemoglobin 30.6 pg (25.0-34.0); Mean Corpuscular Hgb Conc 34.5 g/dL (32.0-36.0); Mean Corpuscular Volume 88.7 fL (80.0-100.0); Mean Platelet Volume 11.4 fL (9.4-12.4); Monocytes # (auto) 0.46 K/uL (0.11-0.59); Monocytes % (auto) 6.6 %; Neutrophils # (auto) 5.32 K/uL (1.40-6.50); Neutrophils % (auto) 75.9 %; Platelet Count 191 K/uL (130-400); RDW Coefficient of Variation 12.5 % (11.5-14.5); RDW Standard Deviation 40.8 fL (36.4-46.3); Red Blood Count 4.68 M/uL (4.20-5.40); White Blood Count 7.01 K/ul (4.8-10.8)
[2024-07-11 17:44] LABS: Prothrombin Time 10.9 Seconds (9.0-12.0)
[2024-07-11 17:49] LABS: Albumin Globulin Ratio 1.3 (0.9-2); Albumin Level 3.9 gm/dl (3.4-5.0); BUN Creatinine Ratio 23.6 (10-20); Bilirubin,Total 0.8 mg/dl (0.2-1.0); Calcium 9.4 mg/dl (8.6-10.3); Creatinine Clr Calc Pharmacy 45.2 ml/min; Est GFR (African American) 47.5 ml/min; Potassium 4.8 mmol/L (3.5-5.1); Total Protein 6.9 gm/dl (6.0-8.3); Troponin I High Sensitivity 6.8 pg/ml (0-14)
[2024-07-11] MEDS: SODIUM CHLORIDE 0.9% 1,000 ML IV ONE (18:20)
[2024-07-11] MEDS: cefTRIAXone SODIUM 2,000 MG/50 ML BAG IV STA (18:20)
--- NOTE | 2024-07-11 20:36 | History & Physical Report ---
Date of Service July 11, 2024 Assessment & Plan (1) Hyperglycemia: Plan: 74yo female with history of Endometrial cancer on Keytruda infusions presenting with persistent hyperglycemia, polyuria and TAL. Patient reports that her blood sugars have always been well controlled until several weeks ago when they have been persistently over 400. Upon review of prior labs - blood sugars have been 88-120 until 06/17/2024. Since then they have been ranging 431 - 514. She had a HgbA1C checked on 06/19/23 which was elevated at 8. Patient likely with new onset diabetes. Possible lesion of the pancreas. Possible autoimmune diabetes from pembrolizumab use -Admit to medical -Check autoimmune DM labs to include IA-2, anti-insulin, RENEE and C-peptide levels -Check random cortisol -Check HgbA1C -Will check abdominal US attn: Pancreas to assess for lesion/mass in new onset DM -BSG q 2 hours until more controlled levels -Insulin management with Lantus 12u BID -ISS with CF=25 and CR=10 - adjust as needed to maintain BSG 110 - 180 -Health Teacher consult appreciated (2) TAL (acute kidney injury): Plan: BUN=30, Cr=1.27. Patient does appear dry on physical exam. Likely secondary to volume depletion from polyuria as well as poor oral intake. -LR at 125mL/hr x 2 liters -Avoid nephrotoxic agents -Renal dosing where needed Plan Chronic Medical Conditions: Hypertension - chronic, mildly elevated -Continue Metoprolol 75mg po BID -Hold Lisiopril with mild TAL -Monitor Hypothyroidism - chronic, stable. Last TSH=3.055 on 07/09/24 -Continue Synthroid 50mcg po daily Atrial Fibrillation - chronic, rate controlled -Continue metoprolol 75mg po BID -Continue Apixaban F/E/N - LR at 125mL/hr x 2L, Mg repletion, CC diet as tolerated Ppx - On Apixaban Code - Full per discussion with patient Dispo - Admit to medical History of Present Illness Chief Complaint: hyperglycemia Primary Care Provider: Eduardo Khan MD Teresa Andino is a 74yo female presenting with hyperglycemia. Patient with endometrial cancer s/p hysterectomy in June 2024, s/p chemotherapy presently on Keytruda infusions. She follows at the [facility]. She reports receiving Keytruda infusions q 6 weeks at an increased dose. She has been having some difficulties with this including worsening arthritis symptoms. She has been closely monitored with blood work every three weeks. She reports that her blood sugar was fairly well controlled until about 4 weeks ago when her sugars were consistently over 400. She was started on Metformin several weeks ago and was more recently started on Mounjaro. She reports developing fairly severe nausea and poor appetite after the Mounjaro. Patient was seen by Oncology and had blood work performed and which revealed some elevation in Cr. She was then instructed to come to the ER. Additionally patient reports diminished appetite with poor oral intake, generalized weakness and fatigue. She endorses weight loss of approximately 15# over the last couple of weeks with 3# weight loss over the last 2-3 days. She reports polyuria but denies dysuria. No abdominal pain, nausea, vomiting, diarrhea. No fever or chills, chest pain, cough or SOB. ER Course: NSS x 1L Ceftriaxone 2gm LR x 1L Lantus 12u Aspart 8u LR at 125mL Apixaban 2.5mg Metoprolol 75mg Tylenol 650mg Magnesium 1gm Allergies Allergy/AdvReac Type Severity Reaction Status Date / Time diphenhydramine Allergy Severe Severe Verified 11/30/23 14:30 [From Benadryl] facial swelling erythromycin base AdvReac Intermediate Upset Verified 11/30/23 14:30 stomach spironolactone AdvReac Intermediate muscle pain Verified 11/30/23 14:30 Home Medications Medication Instructions Recorded Confirmed Type levothyroxine 50 mcg tablet 50 mcg PO QAM 07/31/18 07/11/24 History (Synthroid) albuterol sulfate 90 mcg/actuation 2 puff inhalation Q4H PRN 09/01/22 07/11/24 History aerosol inhaler Shortness Of Breath Or Wheezing buspirone 5 mg tablet 5 mg PO BID PRN Anxiety 09/01/22 07/11/24 History apixaban 5 mg tablet (Eliquis) 2.5 mg PO BID 10/31/22 07/11/24 History lisinopril 2.5 mg tablet 2.5 mg PO QAM 10/31/22 07/11/24 History magnesium 200 mg tablet 200 mg PO HS 10/31/22 07/11/24 History vit C 250 mg-vit E 90 mg-zinc 40 1 tab PO HS 10/31/22 07/11/24 History mg-copper 1 [id number]-gfetyq capsule (PreserVision AREDS-2) fluticasone propionate 44 1 puff inhalation BID PRN 06/06/23 07/11/24 History mcg/actuation HFA aerosol inhaler Shortness Of Breath (Flovent HFA) loratadine 10 mg tablet (Claritin) 10 mg PO DAILY PRN Allergy Symptoms 06/06/23 07/11/24 History metoprolol succinate 50 mg 75 mg (1.5 x 50 mg) PO BID #300 12/01/23 07/11/24 Rx tablet,extended release 24 hr tabs Past Med/Surg History Problem List Acute UTI (urinary tract infection) (Acute) TAL (acute kidney injury) (Acute) Hyperglycemia (Acute) Endometrial ca Acute heart failure with preserved ejection fraction (HFpEF) Postmenopausal bleeding Persistent atrial fibrillation Encounter for pre-operative examination History of pulmonary embolism Dyslipidemia, goal LDL below 100 Acute decompensated heart failure Atrial fibrillation with RVR (Acute) Hypoxia (Acute) Anticoagulant long-term use eliquis bid Cardiomyopathy Asthma last used rescue a couple weeks ago Hypothyroid Medical History Endometrial cancer plans to start chemo 10/10/23 Lymphedema legs bilat Prediabetes pt denies Hypertension DVT (deep venous thrombosis) 2016 Atrial fibrillation on metoprolol/eliquis--Follows with Dr. Chandler Heart failure pt states echo normal last done 08/2023 History of COVID-19 Dx 10/12/22 (home test) Symptoms at time: sinus congestion, cough with mucous, low grade fever, fatigue > resolved History of kidney stones Temporomandibular joint disorder has spasms at dentist office Macular degeneration of right eye mild Bilateral pulmonary embolism 2016, on Eliquis ? reason Surgical History Port-A-Cath in place (10/05/23) Insertion Right Internal Jugular Access Port with Fluoroscopy(Right) - Jose Gallo MD, FACS History of dilatation and curettage History of hysterectomy History of cardioversion 11/09/22 @ [facility] History of breast surgery right benign cyst removal History of bilateral breast biopsy benign History of cystoscopy History of wisdom tooth extraction History of tonsillectomy and adenoidectomy Family History Other Family history not known due to adoption Social History Smoking Status: Former smoker Tobacco Type: Cigarettes Age Quit Using Tobacco: 48; Second Hand Exposure: No; Do You Dip or Chew Tobacco: No; Tobacco Cessation Education Requested by Patient: No Hx Alcohol Use: No Hx Substance Use: No Preferred Language: Portuguese Communication Ability: Effective Visual Impairment: No Limitations Spooler Required: No Beliefs That Will Affect Care: None marital status: Current Living Situation: Spouse current occupational status: retired How many Children do You have: 1 Other Information That Helps Us Care for You: No Feels Safe at Home: Yes Safety Concerns: Feels Safe At This Time Diet: regular during the past year weight has: decreased > 10 lbs Assistive Devices: Cane and Glasses Review of Systems Review of Systems: All systems reviewed & are unremarkable except as noted in HPI & below Physical Exam Physical Exam: General: patient resting comfortably, NAD, non-toxic in appearance, AA&O x 4 Skin: warm, dry, intact, no rashes or lesions HEENT: NC/AT, PERRL, EOMI, anicteric sclera, conjunctiva without injection, external ear normal to inspection and nontender, nares patent, dry mucus membranes, dentition intact, no oropharyngeal lesions, neck supple, trachea midline, no LAD, no thyromegaly, no JVD Heart: +S1/S2, irregularly irregular, no m/r/g Lungs: equal air entry bilaterally, no rales/rhonchi/wheezes Abd: +BS, soft, NT/ND, no masses/organomegaly/ascites Ext: warm, 2+ pulses in UE/LE bilaterally, no clubbing/cyanosis or edema Neuro: nonfocal, patient AA&O x 4, speech intact, no facial droop, moving all extremities on command with equal strength 5/5 Results & Data Results & Data Vital Signs (Past 12 Hours) Vital Signs Temp Pulse Resp BP BP Pulse Ox O2 Del Method 07/11/24 19:39 105/66 07/11/24 19:39 94 Room Air 07/11/24 16:18 36.1 C L 89 16 101/59 L 95 Room Air Laboratory Results Laboratory Results WBC 7.01 K/ul (4.8-10.8) 07/11/24 17:00 RBC 4.68 M/uL (4.20-5.40) 07/11/24 17:00 Hgb 14.3 g/dl (12.0-16.0) 07/11/24 17:00 Hct 41.5 % (37.0-47.0) 07/11/24 17:00 MCV 88.7 fL (80.0-100.0) 07/11/24 17:00 MCH 30.6 pg (25.0-34.0) 07/11/24 17:00 MCHC 34.5 g/dL (32.0-36.0) 07/11/24 17:00 RDW Std Deviation 40.8 fL (36.4-46.3) 07/11/24 17:00 RDW Coeff of Sandra 12.5 % (11.5-14.5) 07/11/24 17:00 Plt Count 191 K/uL (130-400) 07/11/24 17:00 MPV 11.4 fL (9.4-12.4) 07/11/24 17:00 Immature Gran % (Auto) 0.4 % 07/11/24 17:00 Neut % (Auto) 75.9 % 07/11/24 17:00 Lymph % (Auto) 16.0 % 07/11/24 17:00 Nelson % (Auto) 6.6 % 07/11/24 17:00 Eos % (Auto) 0.7 % 07/11/24 17:00 Baso % (Auto) 0.4 % 07/11/24 17:00 Neut # (Auto) 5.32 K/uL (1.40-6.50) 07/11/24 17:00 Lymph # (Auto) 1.12 K/uL (1.20-3.40) L 07/11/24 17:00 Nelson # (Auto) 0.46 K/uL (0.11-0.59) 07/11/24 17:00 Eos # (Auto) 0.05 K/uL (0.00-0.50) 07/11/24 17:00 Baso # (Auto) 0.03 K/uL (0.00-0.20) 07/11/24 17:00 Immature Gran # (Auto) 0.03 K/uL (0.01-0.20) 07/11/24 17:00 PT 10.9 Seconds (9.0-12.0) 07/11/24 17:00 INR 1.0 (0.9-1.1) 07/11/24 17:00 Sodium 127 mmol/L (136-145) L 07/11/24 17:00 Potassium 4.8 mmol/L (3.5-5.1) 07/11/24 17:00 Chloride 95 mmol/L (98-107) L 07/11/24 17:00 Carbon Dioxide 16 mmol/L (21-32) L 07/11/24 17:00 Anion Gap 16 (3-11) H 07/11/24 17:00 BUN 30 mg/dl (6-23) H 07/11/24 17:00 Creatinine 1.27 mg/dl (0.6-1.2) H 07/11/24 17:00 Est Cr Clr Drug Dosing 45.2 ml/min 07/11/24 17:00 Est GFR ( Amer) 47.5 ml/min 07/11/24 17:00 Est GFR (Non-Af Amer) 41.0 ml/min 07/11/24 17:00 BUN/Creatinine Ratio 23.6 (10-20) H 07/11/24 17:00 Glucose 550 mg/dl (70-99(Fasting)) H* 07/11/24 17:00 POC Glucose 250 mg/dl (70-99) H 07/12/24 01:14 Calcium 9.4 mg/dl (8.6-10.3) 07/11/24 17:00 Phosphorus 3.3 mg/dl (2.5-4.9) 07/11/24 17:00 Magnesium 1.5 mg/dl (1.7-2.4) L 07/11/24 17:00 Total Bilirubin 0.8 mg/dl (0.2-1.0) 07/11/24 17:00 AST 13 U/L (13-39) 07/11/24 17:00 ALT 12 U/L (7-52) 07/11/24 17:00 Alkaline Phosphatase 67 U/L (34-104) 07/11/24 17:00 Troponin I High Sens 6.8 pg/ml (0-14) 07/11/24 17:00 Total Protein 6.9 gm/dl (6.0-8.3) 07/11/24 17:00 Albumin 3.9 gm/dl (3.4-5.0) 07/11/24 17:00 Globulin 3.0 gm/dl (2.5-4.0) 07/11/24 17:00 Albumin/Globulin Ratio 1.3 (0.9-2) 07/11/24 17:00 Lipase 48 U/L (11-82) 07/11/24 17:00 Urine Color Yellow 07/12/24 00:00 Urine Appearance Cloudy (Clear) A 07/12/24 00:00 Urine pH 5.0 (4.5-7.5) 07/12/24 00:00 Ur Specific [place] 1.031 (1.000-1.030) H 07/12/24 00:00 Urine Protein Trace (Negative) H 07/12/24 00:00 Urine Glucose (UA) 3+ (Negative) H 07/12/24 00:00 Urine Ketones 4+ (Negative) H 07/12/24 00:00 Urine Blood Trace (Negative) H 07/12/24 00:00 Urine Nitrite Negative (Negative) 07/12/24 00:00 Urine Bilirubin Negative (Negative) 07/12/24 00:00 Urine Urobilinogen Negative (Negative) 07/12/24 00:00 Ur Leukocyte Esterase Negative (Negative) 07/12/24 00:00 Urine WBC (Auto) 21-50 /hpf (0-5) H 07/12/24 00:00 Urine RBC (Auto) 3-5 /hpf (0-2) H 07/12/24 00:00 U Hyaline Cast (Auto) 3-5 /lpf (0-2) H 07/12/24 00:00 U Epithel Cells (Auto) 6-10 /hpf (0-2) H 07/12/24 00:00 Urine Bacteria (Auto) None Seen (None Seen) 07/12/24 00:00 Urine Yeast Present (None Prsent) A 07/12/24 00:00 Diagnostic Findings Laboratory Results WBC 7.01 K/ul (4.8-10.8) 07/11/24 17:00 RBC 4.68 M/uL (4.20-5.40) 07/11/24 17:00 Hgb 14.3 g/dl (12.0-16.0) 07/11/24 17:00 Hct 41.5 % (37.0-47.0) 07/11/24 17:00 MCV 88.7 fL (80.0-100.0) 07/11/24 17:00 MCH 30.6 pg (25.0-34.0) 07/11/24 17:00 MCHC 34.5 g/dL (32.0-36.0) 07/11/24 17:00 RDW Std Deviation 40.8 fL (36.4-46.3) 07/11/24 17:00 RDW Coeff of Sandra 12.5 % (11.5-14.5) 07/11/24 17:00 Plt Count 191 K/uL (130-400) 07/11/24 17:00 MPV 11.4 fL (9.4-12.4) 07/11/24 17:00 Immature Gran % (Auto) 0.4 % 07/11/24 17:00 Neut % (Auto) 75.9 % 07/11/24 17:00 Lymph % (Auto) 16.0 % 07/11/24 17:00 Nelson % (Auto) 6.6 % 07/11/24 17:00 Eos % (Auto) 0.7 % 07/11/24 17:00 Baso % (Auto) 0.4 % 07/11/24 17:00 Neut # (Auto) 5.32 K/uL (1.40-6.50) 07/11/24 17:00 Lymph # (Auto) 1.12 K/uL (1.20-3.40) L 07/11/24 17:00 Nelson # (Auto) 0.46 K/uL (0.11-0.59) 07/11/24 17:00 Eos # (Auto) 0.05 K/uL (0.00-0.50) 07/11/24 17:00 Baso # (Auto) 0.03 K/uL (0.00-0.20) 07/11/24 17:00 Immature Gran # (Auto) 0.03 K/uL (0.01-0.20) 07/11/24 17:00 PT 10.9 Seconds (9.0-12.0) 07/11/24 17:00 INR 1.0 (0.9-1.1) 07/11/24 17:00 Sodium 127 mmol/L (136-145) L 07/11/24 17:00 Potassium 4.8 mmol/L (3.5-5.1) 07/11/24 17:00 Chloride 95 mmol/L (98-107) L 07/11/24 17:00 Carbon Dioxide 16 mmol/L (21-32) L 07/11/24 17:00 Anion Gap 16 (3-11) H 07/11/24 17:00 BUN 30 mg/dl (6-23) H 07/11/24 17:00 Creatinine 1.27 mg/dl (0.6-1.2) H 07/11/24 17:00 Est Cr Clr Drug Dosing 45.2 ml/min 07/11/24 17:00 Est GFR ( Amer) 47.5 ml/min 07/11/24 17:00 Est GFR (Non-Af Amer) 41.0 ml/min 07/11/24 17:00 BUN/Creatinine Ratio 23.6 (10-20) H 07/11/24 17:00 Glucose 550 mg/dl (70-99(Fasting)) H* 07/11/24 17:00 POC Glucose 250 mg/dl (70-99) H 07/12/24 01:14 Calcium 9.4 mg/dl (8.6-10.3) 07/11/24 17:00 Phosphorus 3.3 mg/dl (2.5-4.9) 07/11/24 17:00 Magnesium 1.5 mg/dl (1.7-2.4) L 07/11/24 17:00 Total Bilirubin 0.8 mg/dl (0.2-1.0) 07/11/24 17:00 AST 13 U/L (13-39) 07/11/24 17:00 ALT 12 U/L (7-52) 07/11/24 17:00 Alkaline Phosphatase 67 U/L (34-104) 07/11/24 17:00 Troponin I High Sens 6.8 pg/ml (0-14) 07/11/24 17:00 Total Protein 6.9 gm/dl (6.0-8.3) 07/11/24 17:00 Albumin 3.9 gm/dl (3.4-5.0) 07/11/24 17:00 Globulin 3.0 gm/dl (2.5-4.0) 07/11/24 17:00 Albumin/Globulin Ratio 1.3 (0.9-2) 07/11/24 17:00 Lipase 48 U/L (11-82) 07/11/24 17:00 Urine Color Yellow 07/12/24 00:00 Urine Appearance Cloudy (Clear) A 07/12/24 00:00 Urine pH 5.0 (4.5-7.5) 07/12/24 00:00 Ur Specific [place] 1.031 (1.000-1.030) H 07/12/24 00:00 Urine Protein Trace (Negative) H 07/12/24 00:00 Urine Glucose (UA) 3+ (Negative) H 07/12/24 00:00 Urine Ketones 4+ (Negative) H 07/12/24 00:00 Urine Blood Trace (Negative) H 07/12/24 00:00 Urine Nitrite Negative (Negative) 07/12/24 00:00 Urine Bilirubin Negative (Negative) 07/12/24 00:00 Urine Urobilinogen Negative (Negative) 07/12/24 00:00 Ur Leukocyte Esterase Negative (Negative) 07/12/24 00:00 Urine WBC (Auto) 21-50 /hpf (0-5) H 07/12/24 00:00 Urine RBC (Auto) 3-5 /hpf (0-2) H 07/12/24 00:00 U Hyaline Cast (Auto) 3-5 /lpf (0-2) H 07/12/24 00:00 U Epithel Cells (Auto) 6-10 /hpf (0-2) H 07/12/24 00:00 Urine Bacteria (Auto) None Seen (None Seen) 07/12/24 00:00 Urine Yeast Present (None Prsent) A 07/12/24 00:00 Code Status & VTE Plan VTE Prophylaxis Plan VTE Prophylaxis will be ordered: Yes PG Care Time/CCT Total # of Minutes Spent Total Time Spent with Patient: Total time spent is greater than 50% in coordination of care (as documented) at patient's floor/unit and/or counseling patient: Coding Level of Care Code 41935 INT INP/OBS CARE 3/75MIN Diagnoses Hyperglycemia R73.9 TAL (acute kidney injury) N17.9
[2024-07-11] MEDS: LACTATED RINGER'S 1,000 ML IV SCH ×2 (21:13→22:56)
[2024-07-11] MEDS: INSULIN ASPART PER UNIT CHARGE SC STA (21:23)
[2024-07-11] MEDS: LANTUS PER UNIT CHARGE SQ STA (21:23)
[2024-07-11] MEDS ORDERED: DEXTROSE 50% 50 ML SYRINGE IV PRN (22:06)
[2024-07-11] MEDS ORDERED: CARBOHYDRATES FOR HYPOGLYCEMIA PO PRN (22:06)
[2024-07-11] MEDS ORDERED: ALBUTEROL HFA 8 GM INHALER INH PRN (22:06)
[2024-07-11] MEDS ORDERED: busPIRone 5 MG TAB PO PRN (22:06)
[2024-07-11] MEDS ORDERED: GLUCAGON FOR INJ 1 MG VIAL SQ PRN (22:06)
[2024-07-11] MEDS ORDERED: GLUCOSE 10 TAB/TUBE PO PRN (22:06)
[2024-07-11] MEDS ORDERED: ONDANSETRON INJ 2 MG/ML 2 ML VIAL IV PRN (22:06)
[2024-07-11] MEDS ORDERED: GLUCOSE 40% GEL 15 GM TUBE PO PRN (22:06)
[2024-07-11 22:37] LABS: Magnesium 1.5 mg/dl (1.7-2.4); Phosphorus 3.3 mg/dl (2.5-4.9)
[2024-07-11] MEDS: INSULIN ASPART PER UNIT CHARGE SC SCH (23:24)
[2024-07-11] MEDS: APIXABAN 2.5 MG TAB PO STA (23:30)
[2024-07-11] MEDS: METOPROLOL SUCC 25MG EXT REL TAB PO STA (23:30)
[2024-07-11] MEDS: ACETAMINOPHEN 325 MG TAB PO PRN (23:31)
[2024-07-11] MEDS ORDERED: INSULIN ASPART PER UNIT CHARGE SC STA (23:56)
[2024-07-12] MEDS: MAGNESIUM SULFATE / D5W 1 GM/100 ML BAG IV SCH ×2 (00:41→09:45)
[2024-07-12 00:47] LABS: Appearance Urine Cloudy (Clear); Bacteria Urine Automated None Seen (None Seen); Bilirubin Urine Negative (Negative); Blood Urine Trace (Negative); Color Urine Yellow; Glucose Urine UA 3+ (Negative); Ketones Urine 4+ (Negative); Leukocyte Esterase Urine Negative (Negative); Nitrite Urine Negative (Negative); Protein Urine Trace (Negative); Specific Gravity Urine 1.031 (1.000-1.030); Urobilinogen Urine Negative (Negative); WBC Urine Automated 21-50 /hpf (0-5)
[2024-07-12] MEDS: LEVOTHYROXINE SODIUM 50 MCG TABLET PO SCH (05:10)
[2024-07-12] MEDS: LORazepam 1 MG TAB PO STA (05:36)
[2024-07-12 06:26] LABS: BUN Creatinine Ratio 23.2 (10-20); Calcium 8.3 mg/dl (8.6-10.3); Creatinine Clr Calc Pharmacy 60.7 ml/min; Est GFR (African American) 67.4 ml/min; Est GFR (Non-African American) 58.2 ml/min
[2024-07-12 07:20] LABS: Estimated Average Glucose 303 mg/dl; Hemoglobin A1C 12.2 % (4.5-5.6)
[2024-07-12] MEDS ORDERED: PHARMACY GLYCEMIC MGMT CONSULT PRN (08:32)
--- NOTE | 2024-07-12 08:37 | Electrocardiogram Report ---
Test Reason : Blood Pressure : */* mmHG Vent. Rate : 101 BPM Atrial Rate : * BPM P-R Int : * ms QRS Dur : 88 ms QT Int : 344 ms P-R-T Axes : * -48 -52 degrees QTcB Int : 446 ms Atrial fibrillation with rapid ventricular response Left axis deviation Low voltage QRS Poor R wave progression, consider anterior [place] vs. lead placement vs. LVH Abnormal ECG When compared with ECG of 21-Feb-2024 11:43, (unconfirmed) Inverted T waves have replaced nonspecific T wave abnormality in Lateral leads Confirmed by Ben Painting ([id number]) on 07/12/2024 8:36:43 AM Referred By: REFERRED SELF Confirmed By: Ben Painting
[2024-07-12] MEDS: LANTUS PER UNIT CHARGE SQ SCH (09:34)
[2024-07-12] MEDS: FLUTICASONE FUROATE 100MCG 14 PUFFS/INHALER INH SCH (09:36)
[2024-07-12] MEDS: APIXABAN 2.5 MG TAB PO SCH (09:36)
[2024-07-12] MEDS: METOPROLOL SUCC 25MG EXT REL TAB PO SCH (09:36)
--- NOTE | 2024-07-12 09:36 | Ultrasound Report ---
ABDOMINAL ULTRASOUND, RIGHT UPPER QUADRANT HISTORY: assess pancreas in new onset DM. COMPARISON: None. FINDINGS: Pancreas: The pancreatic tail is obscured by overlying bowel gas. The remaining portions of the pancr eas are within normal limits. Liver: Unremarkable. Gallbladder: There are few small gallstones. No gallbladder wall thickening. CBD: 5 mm. Right kidney: No hydronephrosis. IMPRESSION: 1. The visualized pancreas appears unremarkable. 2. Cholelithiasis. No gallbladder wall thickening. ACT 112: Negative or not required by law. Electronically signed by: Ramsey Carrasco M.D. 07/12/2024 9:35 AM
--- NOTE | 2024-07-12 10:37 | Pharmacy Report ---
Pharmacy Glycemic Short Note 2 - Date of Service July 12, 2024 - Glycemic Short BSG Results (Last 24 hours): 07/11/24 07/11/24 07/11/24 17:00 17:03 21:12 Glucose 550 H* POC Glucose 486 H* 445 H* 07/11/24 07/11/24 07/12/24 23:16 23:17 01:14 Glucose POC Glucose 359 H* 354 H* 250 H 07/12/24 07/12/24 07/12/24 03:00 05:01 05:28 Glucose 247 H POC Glucose 252 H 230 H 07/12/24 07/12/24 07/12/24 07:10 09:04 09:07 Glucose POC Glucose 230 H 305 H* 239 H 07/12/24 09:09 Glucose POC Glucose 289 H OUTPATIENT ANTIDIABETIC REGIMEN: * Metformin (unknown dose) * Mounjaro 2.5mg SQ weekly ASSESSMENT: * 74 year old female admitted for possible lesion of pancreas. Type 2 diabetic recently (within last few weeks) started on Metformin and Mounjaro. Patient has been experiencing elevated blood sugars recently. PMHx significant for endometrial CA, currently receiving Keytruda infusions. A1C collected 06/19/24 was 8 and A1C collected on admission on 07/12/24 was 12.2. Pharmacy consulted for glycemic management. * Patient started on weight based, Stress of 2 insulin dosing. Blood sugars trending down this morning. Reasonable to continue current insulin regimen. PLAN FOR INPATIENT GLYCEMIC CONTROL: * Hold outpatient oral diabetes medications * Basal insulin * Lantus 12 units SQ BID * Bolus insulin * NovoLog per scale ACHS or Q6hrs while NPO * Goal Range: Low 110 mg/dL - High 180 mg/dL * Correction Factor: 25 mg/dL/unit * Nutritional / Prandial insulin per carb ratio of 1 unit per 10 grams CHO consumed
--- NOTE | 2024-07-12 11:33 | Hospitalist Progress Note ---
Date of Service July 12, 2024 Assessment & Plan (1) Hyperglycemia: Plan: 74yo female with history of Endometrial cancer on Keytruda infusions presenting with persistent hyperglycemia, polyuria and TAL. Patient reports that her blood sugars have always been well controlled until several weeks ago when they have been persistently over 400. Upon review of prior labs - blood sugars have been 88-120 until 06/17/2024. Since then they have been ranging 431 - 514. She had a HgbA1C checked on 06/19/23 which was elevated at 8. Patient likely with new onset diabetes. Possible lesion of the pancreas. 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 (2) TAL (acute kidney injury): Plan: BUN=30, Cr=1.27. Patient does appear dry on physical exam. Likely secondary to volume depletion from polyuria as well as poor oral intake. -LR at 125mL/hr x 2 liters -Avoid nephrotoxic agents -Renal dosing where needed -BMP reviewed 07/12: creatinine improved to 0.95 AM BMP *Chronic diastolic (congestive) heart failure Patient has hx of chronic diastolic CHF per problem list. Risk Factor(s): Afib, cardiomyopathy, IV fluid administration Treatment: I&O, weights *Persistent atrial fibrillation Patient has hx of persistent atrial fibrillation per problem list. Risk Factor(s): Atrial fibrillation, hx HFpEF, cardiomyopathy Treatment: Telemetry, ekg *Hyponatremia Presents with Na of 127 Risk Factor(s): hyperglycemia, hx HFpEF, hx afib Treatment: IV NSS, I&O, serial CMP Plan Chronic Medical Conditions: Hypertension - chronic, mildly elevated -Continue Metoprolol 75mg po BID -Hold Lisiopril with mild TAL -Monitor Hypothyroidism - chronic, stable. Last TSH=3.055 on 07/09/24 -Continue Synthroid 50mcg po daily Atrial Fibrillation - chronic, rate controlled -Continue metoprolol 75mg po BID -Continue Apixaban Ppx - On Apixaban Code - Full per discussion with patient Dispo - Admit to medical, anticipate discharge home 07/13 Updated family at bedside 07/12 Admission and Anticipated Discharge Date Admission Date: July 11, 2024 Subjective Patient seen and examined this morning. Patient reports to have no nausea today and was able to tolerate her breakfast. She is agreeable to insulin therapy and has outpatient referral process to endocrinology. Patient denied any further complaints. Physical Exam 2 Constitutional: WD/WN, vitals as above Eyes: PERRL, conjunctivae normal, anicteric sclerae Respiratory: normal respiratory effort, lungs clear to auscultation Cardiovascular: RRR, no murmur, no edema Skin: no rashes, warm and dry Psychiatric: A+Ox3, euthymic affect Results & Data Results & Data Vital Signs (Past 12 Hours) Vital Signs Temp Pulse Resp BP O2 Del Method 07/12/24 07:54 36.5 C 98 H 17 120/72 Room Air Laboratory Results 07/11/24 17:00 07/12/24 05:28 PG Care Time/CCT Total # of Minutes Spent Total Time Spent with Patient: Total time spent is greater than 50% in coordination of care (as documented) at patient's floor/unit and/or counseling patient: Coding Level of Care Code 85772 SUB INP/OBS CARE 3/50MIN Diagnoses Hyperglycemia R73.9 TAL (acute kidney injury) N17.9
[2024-07-12] MEDS: LANTUS PER UNIT CHARGE SQ ONE (12:33)
[2024-07-12] MEDS: cefTRIAXone SODIUM 2,000 MG/50 ML BAG IV SCH (17:53)
[2024-07-12] MEDS: HEPARIN 100 UNIT/ML 5ML FLUSH FLUSH PRN (18:32)
[2024-07-13] MEDS: INSULIN ASPART PER UNIT CHARGE SC SCH (02:23)
[2024-07-13 06:10] LABS: BUN Creatinine Ratio 15.7 (10-20); Calcium 8.1 mg/dl (8.6-10.3); Creatinine Clr Calc Pharmacy 56.5 ml/min; Est GFR (African American) 61.9 ml/min; Est GFR (Non-African American) 53.4 ml/min; Potassium 3.4 mmol/L (3.5-5.1)
[2024-07-13 08:09] VITALS: RESP 16; TEMP 97.7; O2SAT 93
[2024-07-13] MEDS: LANTUS PER UNIT CHARGE SQ SCH (09:06)
[2024-07-13] MEDS: POTASSIUM CHLORIDE CRTAB 20 MEQ TABCR PO STA (09:11)
[2024-07-13 15:53] VITALS: BP 130/70; PULSE 98
--- NOTE | 2024-07-13 15:59 | Discharge Summary ---
Discharge Summary Date of Service July 13, 2024 Principal Dx & Hospital Course #1 = Principal Diagnosis (1) Hyperglycemia: 74yo female with history of Endometrial cancer on Keytruda infusions presenting with persistent hyperglycemia, polyuria and TAL. Patient reports that her blood sugars have always been well controlled until several weeks ago when they have been persistently over 400. Upon review of prior labs - blood sugars have been 88-120 until 06/17/2024. Since then they have been ranging 431 - 514. She had a HgbA1C checked on 06/19/23 which was elevated at 8. Patient likely with new onset diabetes. Possible lesion of the pancreas. 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 Hemoglobin A1c upon admission 12%, random cortisol 12.82. Autoimmune Dm workup pending. Pancreatic US was a normal study. Pharmacy was consulted for glycemic management. Treatment plan from the pharmacy team was Tresiba 25 units daily and Fiasp 8 units prior to each meal. After speaking with several different pharmacies in the area, short acting insulin was found to be not in stock. However Humolog was in stock at [facility] pharmacy so she was to use this derivative vs Fiasp. Patient was also encouraged to call our extension educator as well with any further questions upon discharge. Patient should follow up with endocrinology at an appointment to be scheduled as well. (2) TAL (acute kidney injury): BUN=30, Cr=1.27. Patient does appear dry on physical exam. Likely secondary to volume depletion from polyuria as well as poor oral intake. LR x2 L given. BMP reviewed day of discharged in which creatinine had stabilized. *Chronic diastolic (congestive) heart failure Patient has hx of chronic diastolic CHF per problem list. Risk Factor(s): Afib, cardiomyopathy, IV fluid administration Treatment: I&O, weights *Persistent atrial fibrillation Patient has hx of persistent atrial fibrillation per problem list. Risk Factor(s): Atrial fibrillation, hx HFpEF, cardiomyopathy Treatment: Telemetry, ekg *Hyponatremia Presents with Na of 127 Risk Factor(s): hyperglycemia, hx HFpEF, hx afib Treatment: IV NSS, I&O, serial CMP Plan Chronic Medical Conditions: Hypertension - chronic, mildly elevated -Continue Metoprolol 75mg po BID -Hold Lisinopril with mild TAL -Monitor Hypothyroidism - chronic, stable. Last TSH=3.055 on 07/09/24 -Continue Synthroid 50mcg po daily Atrial Fibrillation - chronic, rate controlled -Continue metoprolol 75mg po BID -Continue Apixaban Discussed with patient and daughter at bedside 07/13 Admission HPI Per Admitting Provider Teresa Andino is a 74yo female presenting with hyperglycemia. Patient with endometrial cancer s/p hysterectomy in June 2024, s/p chemotherapy presently on Keytruda infusions. She follows at the [facility]. She reports receiving Keytruda infusions q 6 weeks at an increased dose. She has been having some difficulties with this including worsening arthritis symptoms. She has been closely monitored with blood work every three weeks. She reports that her blood sugar was fairly well controlled until about 4 weeks ago when her sugars were consistently over 400. She was started on Metformin several weeks ago and was more recently started on Mounjaro. She reports developing fairly severe nausea and poor appetite after the Mounjaro. Patient was seen by Oncology and had blood work performed and which revealed some elevation in Cr. She was then instructed to come to the ER. Additionally patient reports diminished appetite with poor oral intake, generalized weakness and fatigue. She endorses weight loss of approximately 15# over the last couple of weeks with 3# weight loss over the last 2-3 days. She reports polyuria but denies dysuria. No abdominal pain, nausea, vomiting, diarrhea. No fever or chills, chest pain, cough or SOB. ER Course: NSS x 1L Ceftriaxone 2gm LR x 1L Lantus 12u Aspart 8u LR at 125mL Apixaban 2.5mg Metoprolol 75mg Tylenol 650mg Magnesium 1gm Discharge Plan Discharge Items Patient Disposition: Home - Self-Care Reason For Visit: HYPERGLYCEMIA, UTI Discharge Diagnosis: hyperglycemia Activity: Resume your previous activity Non-emergency contact: Primary Care Provider Call non-emergency contact if: you have any medication questions and your symptoms worsen Follow-up/Referrals: Eduardo Khan MD [Primary Care Provider] - 07/19/24 2:25 pm Diet: Carb Consistent or DM2 Addtl Attending Provider Instructions: Mrs. Andino, You were recently hospitalized for experiencing high glucose levels. You received insulin and your blood glucose levels decreased. Please see recommendations below regarding discharge. 1. Please start Lantus 25 units once daily. 2. Please start Humalog 8 units with meals Please monitor blood sugar prior to meal time. If you skip a meal, please skip the dose. 2. Please stop using Mounjaro. 3. You may continue on Metformin as prescribed. 4. Please follow up with endocrinology at an appointment to be scheduled. 5. Please follow up closely with your PCP within 1 week of discharge. 6. You may resume your additional outpatient medications upon discharge. If you experience weakness, dizziness, persistently high blood sugars (>400) please report to the ER for further care. Sincerely, MaryA nne Kumari PA-C Pending Studies at Discharge: No Stand-Alone Forms: My [facility] [employer], Smoking Cessation Medications and DC Order Prescriptions: New (DME) pen needle, diabetic [Pen Needle] 32 gauge x 5/32" needle See Rx Instructions .Route Qty: 50 0RF Rx Instructions: 4x/day insulin lispro [Humalog KwikPen Insulin] 100 unit/mL insulin pen 8 unit subcut ACHS Qty: 15 0RF insulin degludec [Tresiba FlexTouch U-100] 100 unit/mL (3 mL) insulin pen 25 unit subcut DAILY Qty: 15 0RF Continued levothyroxine [Synthroid] 50 mcg Tablet 50 mcg PO QAM metoprolol succinate 50 mg tablet extended release 24 hr 75 mg PO BID Qty: 300 3RF buspirone 5 mg tablet 5 mg PO BID PRN (Reason: Anxiety) albuterol sulfate 90 mcg/actuation HFA aerosol inhaler 2 puff INHALATION Q4H PRN (Reason: Shortness Of Breath Or Wheezing) loratadine [Claritin] 10 mg Tablet 10 mg PO DAILY PRN (Reason: Allergy Symptoms) fluticasone propionate [Flovent HFA] 44 mcg/actuation Hfa Aerosol Inhaler 1 puff INHALATION BID PRN (Reason: Shortness Of Breath) Rx Instructions: administer with spacer lisinopril 2.5 mg Tablet 2.5 mg PO QAM magnesium 200 mg Tablet 200 mg PO HS Eliquis 5 mg Tablet 2.5 mg PO BID PreserVision AREDS-2 250-90-40-1 mg Capsule 1 tab PO HS Discharge Orders: Discharge Order (Routine); Ordered 07/13/24 Ordered By: Mary Anne Patel/Other Patient Handouts: High Blood Sugar (Hyperglycemia), Hypoglycemia (Low Blood Sugar), Diabetes Carbs Fats Protein, Diabetes Support, Hypoglycemia Tx Steps, Diabetes and Sensitive Topics Admission Data Admit Date/Time: 07/11/24 20:33 Attending Provider: Steve Calvin Admit Provider: Ayanna Plasencia Primary Care Provider: Eduardo Khan Other Providers: Ayanna Plasencia Other Interventions: Discharge Summary Assessment (RN) Last Done: 07/13/24 15:52 Hospital Stay Data Consultations 07/11/24 19:59 ED Decision to Admit Stat Diagnostic Imagining Performed 07/12/24 01:33 US abdomen [US pancreas] Routine Pending Results Patient Have Any Pending Studies at Discharge: No Discharge Instructions Given to Patient (Per Discharging Provider) Mrs. Andino, You were recently hospitalized for experiencing high glucose levels. You received insulin and your blood glucose levels decreased. Please see recommendations below regarding discharge. 1. Please start Lantus 25 units once daily. 2. Please start Humalog 8 units with meals Please monitor blood sugar prior to meal time. If you skip a meal, please skip the dose. 2. Please stop using Mounjaro. 3. You may continue on Metformin as prescribed. 4. Please follow up with endocrinology at an appointment to be scheduled. 5. Please follow up closely with your PCP within 1 week of discharge. 6. You may resume your additional outpatient medications upon discharge. If you experience weakness, dizziness, persistently high blood sugars (>400) please report to the ER for further care. Sincerely, Mary Anne Kumari PA-C Supervising Physician Co-Signing Physician Notes During face to face encounter, I obtained a brief physical examination, discussed hospital stay with patient and discharge instructions with patient. I discussed discharge plan of care with SOM Kumari. I reviewed above note and agree with it except for the following: Patient admitted with hyperglycemia. Patient discvharged with above insulin. Patient will have close PCP followup. Total Time Total Time Spent Total Time Spent (In Minutes): 65 Total Time Includes: Examination of the Patient, Discharge Planning, Medication Reconciliation and Communication With Other Providers Coding Level of Care Code 37482 INP/OBS DISCH >30 MIN Diagnoses Hyperglycemia R73.9 TAL (acute kidney injury) N17.9
[2024-07-24 18:42] LABS: C-Peptide 0.51 ng/mL (0.80-3.85); Glutamic Acid Decarboxylase 65 6 IU/mL (<5)
--- NOTE | 2024-07-24 23:02 | Coding Query ---
CODING QUERY To promote full compliance with coding requirements relating to patient care, provider participation is requested in all cases of certified professional coder uncertainty. Please assist us with the question(s) below: Coding Question(s): Pt. present with persistent hyperglycemia. likely new onset diabetes, Possible autoimmune diabetes from pembrolizumab use. Hemoglobin A1c upon admission 12%, random cortisol 12.82. Autoimmune Dm workup pending. Pancreatic US was a normal study. Pharmacy was consulted for glycemic management. Treatment plan from the pharmacy team was Tresiba 25 units daily and Fiasp 8 units prior to each meal. Physician's Response(s): ___ Type 2 Diabetes with hyperglycemia _x__ Autoimmune diabetes d/t pembrolizumab use. ___ Unable to determine (Other) Thank you Barbara PHELPS
== END 2024-07-13 16:56 | disposition home or self-care (01) | DRG 638 ==
LOC: ED 16:05 → SUATTDRO 20:33 → 3W 20:33